=== PATIENT | male | born 1940 | race Asian ===

== ENCOUNTER → 2020-04-29 14:24 | Outpatient (REF) | payer MEDICARE, SELFPAY ==
--- NOTE | 2020-04-29 14:40 | ECG_ITS ---
Test Reason : I20.0 - Unstable angina Blood Pressure : / mmHG Vent. Rate : 072 BPM Atrial Rate : 072 BPM P-R Int : 150 ms QRS Dur : 138 ms QT Int : 422 ms P-R-T Axes : 052 050 024 degrees QTc Int : 462 ms Normal sinus rhythm Right bundle branch block Abnormal ECG When compared with ECG of 20-DEC-2010 08:27, Right bundle branch block is now Present Referred By: Antwan Fitzpatrick Electronically Signed By:CORA PHAM MD
--- NOTE | 2020-04-29 15:01 | XR_ITS ---
EXAMINATION: XR CHEST CLINICAL INFORMATION: Unstable angina. COMPARISON: 12/20/2010 chest radiographs. TECHNIQUE: 2 views of the chest were obtained. FINDINGS: A 0.5 cm nodule is again seen overlying the left upper lobe without interval change. The lungs are otherwise clear. The heart and mediastinal structures are unremarkable. IMPRESSION: Stable chest. No acute cardiopulmonary process.
== END ==
LOC: HO.CARD 14:24
PROVIDERS: PCP Internal Medicine; Visit Provider Internal Medicine
DX: R07.9 Chest pain, unspecified (principal); I20.0 Unstable angina
CPT/HCPCS: 71046; 93005

== ENCOUNTER → 2020-05-10 08:07 | Outpatient (REF) | payer MEDICARE, SELFPAY ==
--- NOTE | 2020-05-10 08:15 | CA_ITS ---
Acquisition Time: 2020-05-10 09:14:15 Total Exercise Time: 00:06:09 Test Indications: CP Medications: SEE CHART Protocol: COLBY Max HR: 146 BPM 102% of Pred: 142 BPM Max BP: 168/088 mmHG Max Work Load: 7.2 METS Exercise stress test using Colby protocol total of 6 min 9 sec. METS 7.2. Tolerated well denies any anginal sx. EKG with RBBB and multiple PVC's during exercise and in early recovery period. No ischemic changes noted. Pt had no sx with PVC's. Normotensive response to exercise. Test reviewed with Dr. Amador Referred By: Antwan Fitzpatrick Overread By: Susan Biswas
--- NOTE | 2020-05-10 08:15 | CA_ITS ---
Transthoracic Echocardiogram Patient (Last, First, Middle): Mike Ballard, Gender: Male Date of : 1940 Age: 80 Procedure Date: 05/10/2020 Procedure Type: Transthoracic Echocardiogram Location: OP Height: 172.72 cm Weight: 77.11 kg BSA: 1.91 m2 Heart Rate: bpm BP: 137 / 62 mmHg Spinner Box: KACEY Referring MD: Antwan Fitzpatrick MD Symptoms: I20.0 - Unstable angina Study Quality: Good ECG Rhythm: Sinus Conclusions: - The left ventricular systolic function is normal. The visually estimated ejection fraction is between 60-65%. - No obvious valvular pathology seen on this study. Findings Left Ventricle Normal left ventricular cavity size. The left ventricular systolic function is normal. The visually estimated ejection fraction is between 60-65%. There is no evidence of regional wall motion abnormalities. Diastolic function is normal for age. Mild basal septal hypertrophy. Right Ventricle Normal right ventricular cavity size and systolic function. Atria The left atrium is normal in size. The right atrium is normal in size. Aortic Valve There is a normal trileaflet aortic valve. There is no aortic valve stenosis. There is no aortic valve regurgitation. Mitral Valve The mitral valve appears normal. There is no mitral valve regurgitation. There is no mitral valve stenosis. Pulmonic Valve The pulmonic valve was not well visualized. Tricuspid Valve Normal tricuspid valve structure. There is trace tricuspid valve regurgitation. The pulmonary artery systolic pressure is normal. Great Vessels The aortic annulus, sinuses of valsalva, and asc aorta are normal in size. Venous The inferior vena cava is normal in size and collapses greater than 50% with inspiration. Pericardium/Pleural There is no evidence of pericardial effusion. Prior Study Comparison No prior study available for comparison. Recommendations, Care & Conclusions No obvious valvular pathology seen on this study. Measurements 2D Linear Measurements IVSd: 1.44 0.6-0.9/0.6-1.0 cm LVIDd: 4.45 3.9-5.3/4.2-5.9 cm LVIDd Index: 2.33 2.4-3.2/2.2-3.1 cm/m2 LVIDs: 1.89 2.0-3.6 cm LVPWd: 0.96 0.7-1.1 cm Ao Root: 2.70 2.1-3.5 cm LA Diam: 3.40 2.7-3.8/3.0-4.0 cm LAIDs Index: 1.78 1.5-2.3 cm/m2 LV Mass: 241.90 67-162/88-224 g LV Mass Index: 126.65 43-95/49-115 g/m2 LVOT Diam: 2.00 3.0+(-)1.3 cm 2D Systolic Function EF 4C: 68.20 >55% Mitral Valve MV Pk E: 0.84 MV PK A: 0.55 MV Decel Time: 121.00 E/A: 1.50 E'Lateral: 10.90 E'Medial: 8.90 E/E' Med: 9.50 E/E' Lat: 7.70 PHT: 36.00 MVA PHT: 6.11 Decel Carroll: 6.95 Aortic Valve AoV Pk Joey: 1.38 AoV Pk Grad: 8.00 LVOT LVOT Pk Joey: 1.48 LVOT Mn Joey: 1.14 LVOT VTI: 0.34 LVOT Pk Grad: 9.00 LVOT Mn Grad: 6.00 LVOT Diam: 2.00 LVOT Area: 3.14 Diastolic Function MV Pk E: 0.84 MV Pk A: 0.55 E/A: 1.50 E'Medial: 8.90 E/E' Med: 9.50 E' Laterial: 10.90 E/E' Lat: 7.70 Right Ventricle TAPSE (mm): 217.00 Tricuspid Valve TR Pk Joey: 2.31 TR Pk Grad: 21.00 RA Press: 3.00 RVSP: 24.00 Great Vessels Aorta Ao Root-2D: 2.70 2.0-3.7 cm Ao Asc: 3.10 2.1-3.4 cm Updated in Other Vendor System with Status of Final Florin Amador MD electronically signed on 05/10/2020 10:34:07 AM with status of Final
== END ==
LOC: HO.CARD 08:07
PROVIDERS: PCP Internal Medicine; Visit Provider Internal Medicine
DX: I20.0 Unstable angina (principal)
CPT/HCPCS: 93017; 93306

== ENCOUNTER 2020-07-07 07:31 | Outpatient (REF) | payer MEDICARE, SELFPAY ==
[2020-07-07 10:17] LABS: Basophils Percent Auto 0.5 % (0-2); Eosinophils Absolute Auto 0.3 X10*3/uL (0.0-0.4); Eosinophils Percent Auto 4.2 % (0-4); Hematocrit 44.9 % (42-52); Hemoglobin 14.7 g/dl (14.0-18.0); Imm Gran Abs Auto 0.04 X10*3/uL (0.00-0.03); Imm Gran Pct Auto 0.5 % (0.0-0.4); Lymphocytes Absolute Auto 2.2 X10*3/uL (1.2-4.9); Lymphocytes Percent Auto 28.9 % (20-40); Mean Corpuscular HGB Conc 32.7 g/dl (31.0-36.0); Mean Corpuscular Hemoglobin 28.2 pg (27.0-33.0); Mean Platelet Volume 9.9 fL (9.4-12.4); Monocytes Absolute Auto 0.7 X10*3/uL (0.1-1.2); Monocytes Percent Auto 9.2 % (2-11); Neutrophils Absolute Auto 4.3 X10*3/uL (2.0-8.3); Neutrophils Percent Auto 56.7 % (45-73); Platelet Count 270 X10*3/uL (160-400); Red Blood Count 5.22 X10*6/uL (4.60-5.80); Red Cell Distribution Width 13.1 % (11.0-16.0); White Blood Count 7.7 X10*3/uL (4.8-10.8)
[2020-07-07 10:18] LABS: MANUAL DIFF FLAG NO
[2020-07-07 10:51] LABS: Alanine Aminotransferase 28 U/L (0-40); Albumin Level 4.4 g/dL (3.5-5.0); Alkaline Phosphatase 51 U/L (39-117); Anion Gap 12 (12-20); Aspartate Amino Transferase 20 U/L (5-37); Bilirubin Total 0.6 mg/dL (0.0-1.0); Blood Urea Nitrogen 26 mg/dL (9-16); Carbon Dioxide 28 mmol/L (22-29); Chloride 102 mmol/L (96-108); Cholesterol 194 mg/dL; Estimated Glomerular Filt Rate 55; Glucose Random 101 mg/dL (60-115); HDL Cholesterol 33 mg/dL; LDL Cholesterol Calculated 123 mg/dl; Potassium 4.8 mmol/l (3.3-5.1); Sodium 137 mmol/L (135-145); Total Protein 7.3 g/dL (6.5-8.0); Triglycerides 190 mg/dL
[2020-07-07 11:13] LABS: Free T4 (Free Thyroxine) 0.99 ng/dL (0.71-1.85); Thyroid Stimulating Hormone 1.13 uIU/mL (0.32-4.0)
[2020-07-07 11:30] LABS: Folate 11.3 ng/mL (> or = 4.0); Vitamin B12 414 pg/mL (200-900)
== END 2020-07-07 07:32 | disposition home or self-care (01) ==
LOC: HO.10HDL 07:31
PROVIDERS: PCP Internal Medicine; Visit Provider Internal Medicine
DX: E78.1 Pure hyperglyceridemia (principal); E78.00 Pure hypercholesterolemia, unspecified
CPT/HCPCS: 36415; 80053; 80061; 82607; 82746; 84439; 84443; 85025

== ENCOUNTER 2020-07-25 06:42 | Outpatient (REF) | payer MEDICARE, SELFPAY | END 2020-07-25 06:43 | disposition home or self-care (01) | LOC: HO.LAB 06:42 | PROVIDERS: Visit Provider Internal Medicine | DX: Z20.822 Contact with and (suspected) exposure to COVID-19 (principal) | CPT/HCPCS: 36415; C9803; U0003 ==

== ENCOUNTER 2020-08-08 06:32 | Outpatient (REF) | payer MEDICARE, SELFPAY | END 2020-08-08 06:33 | disposition home or self-care (01) | LOC: HO.LAB 06:32 | PROVIDERS: PCP Internal Medicine; Visit Provider Internal Medicine | DX: Z20.822 Contact with and (suspected) exposure to COVID-19 (principal) | CPT/HCPCS: 36415; C9803; U0003 ==

== ENCOUNTER 2020-08-16 06:29 | Outpatient (REF) | payer MEDICARE, SELFPAY | END 2020-08-16 06:30 | disposition home or self-care (01) | LOC: HO.LAB 06:29 | PROVIDERS: Visit Provider Internal Medicine | DX: Z20.822 Contact with and (suspected) exposure to COVID-19 (principal) | CPT/HCPCS: 36415; C9803; U0003; U0005 ==

== ENCOUNTER 2021-11-07 07:18 | Outpatient (REF) | payer MEDICARE, SELFPAY ==
[2021-11-07 07:56] LABS: COVID-19 Test Negative (Negative); IDNOW Serial# 16C4AD1C
== END 2021-11-07 07:19 | disposition home or self-care (01) ==
LOC: HO.LAB 07:18
PROVIDERS: Visit Provider Internal Medicine
DX: Z20.822 Contact with and (suspected) exposure to COVID-19 (principal)
CPT/HCPCS: 87635; C9803

== ENCOUNTER 2022-01-16 07:39 | Outpatient (REF) | payer MEDICARE, SELFPAY ==
[2022-01-16 08:06] LABS: COVID-19 Test Negative (Negative)
== END 2022-01-16 07:40 | disposition home or self-care (01) ==
LOC: HO.LAB 07:39
PROVIDERS: PCP Internal Medicine; Visit Provider Internal Medicine
DX: Z20.822 Contact with and (suspected) exposure to COVID-19 (principal)
CPT/HCPCS: 87635; C9803

== ENCOUNTER 2022-02-08 07:20 | Outpatient (REF) | payer MEDICARE, SELFPAY ==
[2022-02-08 07:57] LABS: COVID-19 Test Negative (Negative)
== END 2022-02-08 07:21 | disposition home or self-care (01) ==
LOC: HO.LAB 07:20
PROVIDERS: Visit Provider Internal Medicine
DX: Z20.822 Contact with and (suspected) exposure to COVID-19 (principal)
CPT/HCPCS: 87635; C9803

== ENCOUNTER 2022-12-31 06:47 | Outpatient (REF) | payer MEDICARE, SELFPAY ==
[2022-12-31 06:55] LABS: MANUAL DIFF FLAG NO
[2022-12-31 07:27] LABS: Basophils Absolute Auto 0.1 X10*3/uL (0.0-0.2); Basophils Percent Auto 0.7 % (0-2); Eosinophils Absolute Auto 0.2 X10*3/uL (0.0-0.4); Eosinophils Percent Auto 3.2 % (0-4); Hematocrit 40.7 % (42.0-52.0); Hemoglobin 13.1 g/dl (14.0-18.0); Imm Gran Abs Auto 0.05 X10*3/uL (0.00-0.03); Imm Gran Pct Auto 0.7 % (0.0-0.4); Lymphocytes Absolute Auto 1.6 X10*3/uL (1.2-4.9); Lymphocytes Percent Auto 21.5 % (20-40); Mean Corpuscular HGB Conc 32.2 g/dl (31.0-36.0); Mean Corpuscular Hemoglobin 27.5 pg (27.0-33.0); Mean Corpuscular Volume 85.5 fL (80.0-98.0); Mean Platelet Volume 9.1 fL (9.4-12.4); Monocytes Absolute Auto 0.8 X10*3/uL (0.1-1.2); Neutrophils Absolute Auto 4.8 x10*3/uL (2.0-8.3); Neutrophils Percent Auto 63.9 % (45-73); Platelet Count 263 X10*3/uL (160-400); Red Blood Count 4.76 X10*6/uL (4.60-5.80); Red Cell Distribution Width 13.5 % (11.0-16.0); White Blood Count 7.5 X10*3/uL (4.8-10.8)
[2022-12-31 08:17] LABS: Alanine Aminotransferase 16 U/L (0-40); Albumin Level 3.9 g/dL (3.5-5.0); Alkaline Phosphatase 62 U/L (39-117); Anion Gap 12 (12-20); Aspartate Amino Transferase 14 U/L (5-37); Bilirubin Total 0.7 mg/dL (0.0-1.0); Blood Urea Nitrogen 15 mg/dL (9-16); Calcium 9.4 mg/dL (8.4-10.2); Carbon Dioxide 26 mmol/L (22-29); Chloride 104 mmol/L (96-108); Cholesterol 98 mg/dL; Estimated Glomerular Filt Rate > 60; Glucose Random 105 mg/dL (60-115); HDL Cholesterol 31 mg/dL; LDL Cholesterol Calculated 54 mg/dl; Sodium 138 mmol/L (135-145); Triglycerides 66 mg/dL
[2022-12-31 08:37] LABS: Thyroid Stimulating Hormone 1.04 uIU/mL (0.32-4.0)
[2022-12-31 08:49] LABS: Folate 9.9 ng/mL (> or = 4.0); Vitamin B12 488 pg/mL (200-900)
== END 2022-12-31 06:48 | disposition home or self-care (01) ==
LOC: HO.LAB 06:47
PROVIDERS: PCP Internal Medicine; Visit Provider Internal Medicine
DX: E78.00 Pure hypercholesterolemia, unspecified (principal)
CPT/HCPCS: 36415; 80053; 80061; 82607; 82746; 84439; 84443; 85025

== ENCOUNTER 2023-04-26 08:19 | Outpatient (AMB) | payer MEDICARE, SELFPAY ==
[2023-04-26 08:23] VITALS: BP 152/70; PULSE 80; O2SAT 98; BMI 26.5
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
== END 2023-04-26 09:02 | disposition home or self-care (01) ==
PROVIDERS: PCP Internal Medicine; Visit Provider Internal Medicine
DX: I10 Essential (primary) hypertension (principal); R73.02 Impaired glucose tolerance (oral); H34.12 Central retinal artery occlusion, left eye; E78.00 Pure hypercholesterolemia, unspecified; Z23 Encounter for immunization
CPT/HCPCS: 90471; 90714; 99214

== ENCOUNTER 2023-12-02 08:16 | Outpatient (AMB) | payer MEDICARE, SELFPAY ==
[2023-12-02 08:26] VITALS: BP 150/72; PULSE 73; O2SAT 97; BMI 27.1
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
== END 2023-12-02 09:16 | disposition home or self-care (01) ==
PROVIDERS: PCP Internal Medicine; Visit Provider Internal Medicine
DX: Z01.818 Encounter for other preprocedural examination (principal); S06.5XAA Traumatic subdural hemorrhage with loss of consciousness status unknown, initial encounter; I10 Essential (primary) hypertension; R73.02 Impaired glucose tolerance (oral); E78.00 Pure hypercholesterolemia, unspecified; D64.9 Anemia, unspecified
CPT/HCPCS: 99214

== ENCOUNTER → 2023-12-06 13:43 | Outpatient (REF) | payer MEDICARE, SELFPAY ==
--- NOTE | 2023-12-06 13:49 | ECG_ITS ---
Test Reason : PREOP Blood Pressure : / mmHG Vent. Rate : 065 BPM Atrial Rate : 065 BPM P-R Int : 154 ms QRS Dur : 142 ms QT Int : 418 ms P-R-T Axes : 057 047 031 degrees QTc Int : 434 ms Normal sinus rhythm Right bundle branch block Abnormal ECG When compared with ECG of 29-APR-2020 14:51, No significant change was found Referred By: Antwan Fitzpatrick Electronically Signed By:Geoffrey Lamb
== END ==
LOC: HO.CARD 13:43
PROVIDERS: PCP Internal Medicine; Visit Provider Internal Medicine
DX: Z01.818 Encounter for other preprocedural examination (principal)
CPT/HCPCS: 93005

== ENCOUNTER → 2023-12-06 13:49 | Outpatient (BNV) | payer MEDICARE, SELFPAY | PROVIDERS: PCP Internal Medicine; Visit Provider Internal Medicine Cardiovascular Disease | DX: R94.31 Abnormal electrocardiogram [ECG] [EKG] (principal) | CPT/HCPCS: 93010 ==

== ENCOUNTER 2023-12-07 07:30 | Outpatient (REF) | payer MEDICARE, SELFPAY ==
[2023-12-07 07:52] LABS: MANUAL DIFF FLAG NO
[2023-12-07 08:43] LABS: Basophils Absolute Auto 0.1 X10*3/uL (0.0-0.2); Basophils Percent Auto 0.9 % (0-2); Eosinophils Absolute Auto 0.2 X10*3/uL (0.0-0.4); Eosinophils Percent Auto 4.1 % (0-4); Hematocrit 38.3 % (42.0-52.0); Hemoglobin 12.4 g/dl (14.0-18.0); Imm Gran Abs Auto 0.02 X10*3/uL (0.00-0.03); Imm Gran Pct Auto 0.3 % (0.0-0.4); Immature Retic Fraction 12.4 % (2.3-13.4); Lymphocytes Absolute Auto 1.5 X10*3/uL (1.2-4.9); Lymphocytes Percent Auto 25.5 % (20-40); Mean Corpuscular HGB Conc 32.4 g/dl (31.0-36.0); Mean Corpuscular Hemoglobin 26.3 pg (27.0-33.0); Mean Corpuscular Volume 81.3 fL (80.0-98.0); Mean Platelet Volume 9.2 fL (9.4-12.4); Monocytes Absolute Auto 0.6 X10*3/uL (0.1-1.2); Monocytes Percent Auto 10.6 % (2-11); Neutrophils Absolute Auto 3.4 x10*3/uL (2.0-8.3); Neutrophils Percent Auto 58.6 % (45-73); Platelet Count 217 X10*3/uL (160-400); Red Blood Count 4.71 X10*6/uL (4.60-5.80); Red Cell Distribution Width 13.8 % (11.0-16.0); Retic HGB Equivalent 27.8 pg (30.0-35.0); Reticulocyte Percent 1.1 % (0.5-1.8); Reticulocytes Absolute 0.054 X10*6/uL (0.026-0.095); White Blood Count 5.8 X10*3/uL (4.8-10.8)
[2023-12-07 09:14] LABS: Estimated Average Glucose 126 mg/dL
[2023-12-07 09:25] LABS: Alanine Aminotransferase 23 U/L (0-40); Alkaline Phosphatase 48 U/L (39-117); Anion Gap 11 (12-20); Aspartate Amino Transferase 19 U/L (5-37); Bilirubin Total 0.7 mg/dL (0.0-1.0); Blood Urea Nitrogen 23 mg/dL (9-16); Carbon Dioxide 24 mmol/L (22-29); Chloride 107 mmol/L (96-108); Cholesterol 101 mg/dL (<200); Estimated Glomerular Filt Rate > 60; Glucose Random 123 mg/dL (60-115); HDL Cholesterol 31 mg/dL (>40); Iron 60 mcg/dL (45-160); LDL Cholesterol Calculated 50 mg/dL (<100); Percent Iron Saturation 17 % (15-50); Potassium 4.2 mmol/L (3.3-5.1); Sodium 138 mmol/L (135-145); Total Iron Binding Capacity 347 mcg/dL (228-428); Total Protein 6.7 g/dL (6.5-8.0); Triglycerides 100 mg/dL (<150); Unsaturated Iron Binding 287 ug/dL
[2023-12-07 09:42] LABS: Ferritin 11 ng/mL (20-250); Free T4 (Free Thyroxine) 0.98 ng/dL (0.71-1.85); Thyroid Stimulating Hormone 1.04 uIU/mL (0.32-4.0)
[2023-12-07 12:11] LABS: Folate 9.2 ng/mL (> or = 4.0)
[2023-12-07 13:39] LABS: Vitamin B12 391 pg/mL (200-900)
== END 2023-12-07 07:31 | disposition home or self-care (01) ==
LOC: HO.LAB 07:30
PROVIDERS: PCP Internal Medicine; Visit Provider Internal Medicine
DX: D64.9 Anemia, unspecified (principal); I10 Essential (primary) hypertension; R73.02 Impaired glucose tolerance (oral); E78.00 Pure hypercholesterolemia, unspecified
CPT/HCPCS: 36415; 80053; 80061; 82607; 82728; 82746; 83036; 83540; 84439; 84443; 85025; 85045

== ENCOUNTER 2023-12-16 06:11 | Day surgery (SDC) | payer MEDICARE, SELFPAY ==
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
[2023-12-12 14:27] VITALS: BMI 27.1
[2023-12-16 06:24] VITALS: BP 171/74; PULSE 73; RESP 18; TEMP 36.9; O2SAT 97
[2023-12-16] MEDS: Tetracaine HCl/PF 0.5% Oph Sol 4 ML DROPS 1 DROP EYE-RIGHT (06:37)
[2023-12-16] MEDS: Lactated Ringers 500 ML 50 ML IV (06:37)
[2023-12-16] MEDS: Tropicamide 1 % Ophth Sol 3 ML BTL 1 DROP EYE-RIGHT ×3 (06:38→06:41)
[2023-12-16] MEDS: Cyclopentolate 1 % Ophth Sol 2 ML DRPBTL 1 DROP EYE-RIGHT ×3 (06:38→06:41)
[2023-12-16] MEDS: Ketorolac Tromethamine 0.5% Op 10 ML DROPS 1 DROP EYE-RIGHT ×3 (06:39→06:42)
[2023-12-16] MEDS: Phenylephrine HCL 2.5% Oph SoL 2 ML BOTTLE 1 DROP EYE-RIGHT ×3 (06:39→06:42)
--- NOTE | 2023-12-16 07:51 | MHC.SHP ---
Pre-Procedural Eval Section A - 24 Hr Update-Section A only Date of Service: 12/16/23 The patient is an INPATIENT: No Changes since office visit: No Cold of Flu in the past 2 weeks, No New Medical Problems, No Changes in Medication and No Patient answered all questions The patient has been examined within 24 hours of the surgical procedure. The History & Physical has been completed within 30 days and I have reviewed it.: Yes Section B - Complete if H&P > 30 days Chief Complaint: Age-related nuclear cataract, right eye Allergies: Allergies Allergy/AdvReac Type Severity Reaction Status Date / Time No Known Allergies Allergy Verified 12/02/23 08:27 dust/ pollen Allergy Mild congestion Uncoded 12/02/23 08:27 Plan Diagnosis/Plan: Unchanged I have reviewed the history and physical and performed a pertinent physical examination on my patient. No changes have occurred unless specified. Time Spent With Patient Time: Total time managing care of this patient today ____ minutes.
--- NOTE | 2023-12-16 07:52 | P.PCNO_ITS ---
Ophthalmology Procedure Procedure Date of Service: 12/16/23 Ophthalmology Viscoelastic: Healon Duet Dual Pack Pro Ophthalmology Lenses: IOL Acrysof MP - [id number] (22.5) Procedure Notes: PREOPERATIVE DIAGNOSIS: Decreased visual acuity right eye secondary to cataract POSTOPERATIVE DIAGNOSIS: Same PROCEDURE: Right cataract extraction with intraocular lens insertion SURGEON: Sandip Gardner M.D. ANESTHESIA: Topical/MAC ESTIMATED BLOOD LOSS: None COMPLICATIONS: None After obtaining informed consent, the patient was brought to the operating room suite and placed in the supine position. After adequate sedation per anesthesia, topical drops of Tetracaine were given to the right eye. The eye was then prepped and draped in the usual sterile fashion. The operating room microscope was then positioned over the operative eye and a lid speculum placed. A paracentesis was created. Viscoelastic was then instilled into the anterior chamber. A three plane incision was then created temporally, utilizing a 2.85 mm keratome. Capsulotomy forceps were then utilized to create a circular tear capsulotomy. Hydrodissection and hydrodelineation were carried out until adequate mobilization of the nucleus occurred. Phacoemulsification was then utilized to remove the dense central nu cleus followed by removal of the cortical material utilizing the automated aspiration irrigation unit. Viscoelastic was instilled into the posterior capsular bag followed by placement of a posterior chamber intraocular lens without difficulty. The residual Viscoelastic was then removed utilizing the automated IA machine. The wound was checked and found to be watertight. The patient tolerated the procedure well and the lid speculum was removed. Intracameral injection of Vigamox 0.1 mL followed by a subtenon injection of Kenalog-40 0.2 mL were administered. The patient will be seen in the a.m.
[2023-12-16 08:48] VITALS: BP 179/87; PULSE 61; RESP 16; TEMP 36.6; O2SAT 97
--- OUTSIDE RECORDS SUMMARY | 2023-12-20 09:15 | XMS_ITS | Continuity of Care Document ---
Author Organization [facility] ter Address [address] [place] [id number] Care Team Providers Care Rigger Name Role Phone Po Antwan LYMAN Primary Care Physician [place] [facility] [place] - 12/03/[address] [id number] Discharge Disposition: A-D/C Home Attending Physician: Henna Bee MD Admitting Physician: Sammy Torres MD Referring Physician: Not on Staff, Referring MD Allergies, Adverse Reactions, Alerts No Known Medication Allergies Substance Reaction Severity Status Dust pollen,dust Active Immunizations Given and Recorded Vaccine Date Status Refusal Reason [id number] 12y+ bivalent booster vax 04/26/22 Recorded SARS-CoV-2 mRNA ([id number]) vax 11/01/21 Recorded SARS-CoV-2 (COVID-19) mRNA BNT-162b2 vac 04/07/21 Recorded SARS-CoV-2 (COVID-19) mRNA BNT-162b2 vac 09/05/20 Recorded SARS-CoV-2 (COVID-19) mRNA BNT-162b2 vac 08/15/20 Recorded Medications atorvastatin 20 mg oral tablet 1 tablet = 20 mg, By Mouth, Daily at bedtime, # 30 tablet, 0 Refills, Maintenance, 12/02/22 8:25:00EDT, Tablet, [facility], Partial fill upon patient request if the prescription is fora schedule II opioid drug., 174, cm, 12/01/22 23:35... Start Date: 12/02/22 Status: Ordered Flomax 0.4 mg oral capsule 0.4 mg, 1, capsule, By Mouth, Daily, # 30 capsule, Refills 0, Tot. Refills 0, Maintenance, :24:00 EDT, Route to Pharmacy Electronically, [facility], Partial fill upon patient request if the prescription is for a schedule II opi... Start Date: 12/02/22 Status: Ordered gabapentin 300 mg oral capsule 300 mg, 1, capsule, By Mouth, Daily at bedtime, # 30 capsule, Refills 0, Tot. Refills 0, Maintenance, 12/03/22 14:35:00 EDT, [id number] Partial fill upon patient request if the prescription is for a schedule... Start Date: 12/03/22 Status: Ordered Medrol Dosepak 4 mg oral tablet 1 pack/packet, By Mouth, Daily, for 6 days, FOR HEADACHE as directed on package labeling, # 21 tablet, 5 Refills, Acute 01/07/23 10:48:00 EDT, 12/02/22 10:48:00 EDT, Tablet, [facility],Partial fill upon patient request if the prescripti... Start Date: 12/02/22 Stop Date: 01/07/23 Status: Ordered metoprolol 25 mg oral tablet 50 mg, Tablet, By Mouth, 12/03/22 9:00:00 EDT Start Date: 12/03/22 Stop Date: 12/03/22 Status: Completed metoprolol 50 mg oral tablet, extended release 50 mg, 1, tablet, By Mouth, Daily, # 30 tablet, Refills 0, Tot. Refills 0, Maintenance, 12/02/22 8:26:00 EDT, Route to Pharmacy Electronically, [facility], Partial fill upon patient request if the prescription is for a schedule II opioid... Start Date: 12/02/22 Status: Ordered prednisolone ophthalmic acetate 1% suspension 1 drops, Eye, Left, 4 times a day, for 3 days, take for no more than 3 more days, # 5 mL, 0 Refills, Acute 12/05/22 8:24:00 EDT, 12/02/22 8:24:00 EDT, Ophth Suspension, [facility], Partial fill upon patient request if the prescription is... Start Date: 12/02/22 Stop Date: 12/05/22 Status: Ordered tranexamic acid 650 mg oral tablet 1 tablet = 650 mg, By Mouth, Daily, # 14 tablet, 0 Refills, Maintenance, 12/02/22 8:24:00 EDT, Tablet, [facility], Partial fill upon patient request if the prescription is for a schedule II opioid drug., 174, cm, 12/01/22 23:35:00 EDT, H... Start Date: 12/02/22 Stop Date: 12/16/22 Status: Ordered Tylenol 325 mg oral tablet 975 mg, 3, tablet, By Mouth, Every 6 hours, PRN, for 14 days, # 30 tablet, Refills 0, Tot. Refills 0, Acute 12/16/22 8:25:00 EDT, Pain , Mild, 12/02/22 8:25:00 EDT, Route to Pharmacy Electronically, [facility], Partial fill upon patient... Start Date: 12/02/22 Stop Date: 12/16/22 Status: Ordered Problem List Condition Confirmation Course Effective Dates Status [facility] Informant Hernia, inguinal, right Confirmed Active Results Radiology Reports * Exam Date Time Procedure Performing Provider Status 12/02/22 1:[address] Head/Brain W/O Contrast Rhonda Fuentes; Jhonatan (Verified) Notes: (CT Head/Brain W/O Contrast) Reason For Exam: Headache(s) RESULT: CT Head/Brain W/O Contrast CT Head/Brain W/O Contrast INDICATION: Reason: Headache(s); Clinical Question(s): Hematoma. TECHNIQUE: Noncontrast head CT using axial technique and reconstructed in axial and coronal planes.Iterative reconstruction techniques are used to optimize dose and image quality. CTDIvol Head: 45.50 mGy, DLP Head: 772 mGy*cm. COMPARISON: Head CT dated 11/29/2022. FINDINGS: Firearms Inspector view findings, lines and tubes: None. BRAIN AND EXTRA-AXIAL SPACES: Bilateral mixed density subdural collections are again seen. These are not significantly changed measuring up to 1.4 cm on the right and 1.6 cm on the left associated mass effect on the adjacent frontal and parietal lobes and right lateral ventricle. No evidence of midline shift. No parenchymal hemorrhage, Petersen-white matter differentiation is well preserved. No acute infarct. Basilar cisterns are patent. No white matter lesions. No subarachnoid hemorrhage. No epidural collection. CALVARIUM, SKULL BASE, AND SOFT TISSUES: No fractures or suspicious bony lesions. The paranasal sinuses and mastoid air cells are clear. Visualized orbits and globes are intact. The extracranial soft tissues are unremarkable. IMPRESSION: No interval change in mixed density bilateral subdural collections. WSN: [id number] Ordering Physician: Bisi Porter Dictated By: Brittaney Calderon MD Dictated Date/Time: 12/02/22 1:47 pm Reviewed By: Brittaney Calderon MD Signed By: Brittaney Calderon MD Signed Date/Time: 12/02/22 1:47 pm Transcribed By: GIOVANNA Transcribed Date/Time: 12/02/22 1:38 pm * Exam Date Time Procedure Performing Provider Status 11/29/22 4:[address] Head/Brain W/O Contrast Fortunato Carballo era; Auth (Verified) Notes: (CT Head/Brain W/O Contrast) Reason For Exam: Worsening neuro exam, size of SDH;Other: RESULT: CT Head/Brain W/O Contrast CT Head/Brain W/O Contrast INDICATION: Reason: Worsening neuro exam, size of SDH TECHNIQUE: Noncontrast head CT using axial technique and reconstructed in axial and coronal planes.Iterative reconstruction techniques are used to optimize dose and image quality. CTDIvol Head: 48.20 mGy, DLP Head: 773 mGy*cm. COMPARISON: 11/28/2022, interventional radiology images 11/28/2022, and multiple priors. FINDINGS: Firearms Inspector view findings, lines and tubes: None. BRAIN AND EXTRA-AXIAL SPACES: Redemonstrated bilateral frontoparietal subdural hemorrhages, unchanged bilaterally measuring 2.0 cm in maximum thickness (series 204:28, 30). Decreased hyperdense components as compared to the immediate prior dated 11/28/2022, which could represent reabsorption/redistribution of IV contrast administered during an angiography or decreasing acute hemorrhagic components. Mass effect in the form of effacement of the sulci and the lateral ventricles is unchanged. No midline shift. No herniation. No new hemorrhage. No loss of petersen-white matter differentiation. Negative insular ribbon sign. Atherosclerotic vascular calcification of the carotid arteries but negative hyperdense vessel sign. Ventricles, sulci, and basilar cisterns are normal. No white matter lesions. Bilateral middle meningeal artery embolization. CALVARIUM, SKULL BASE, AND SOFT TISSUES: No fractures or suspicious bony lesions. Mild anterior ethmoid air cell mucosal thickening, unchanged. The remaining paranasal sinuses and mastoid air cells are clear. Visualized orbits and globes are intact. The extracranial soft tissues are unremarkable. IMPRESSION: Decrease in hyperdense components of bilateral frontoparietal subdural hemorrhages. These are unchanged in thickness measuring 2.0 cm bilaterally, with unchanged mass effect. No herniation or midlineshift. I have personally reviewed the images and I agree with this report. WSN: [id number] Ordering Physician: Scottie Murillo Dictated By: Edel Jimenez MD Dictated Date/Time: 11/29/22 4:55 pm Reviewed By: Quoc Nicholas MD Signed By: Quoc Nicholas MD Signed Date/Time: 11/29/22 5:00 pm Transcribed By: GIOVANNA Transcribed Date/Time: 11/29/22 4:53 pm * Exam Date Time Procedure Performing Provider Status 11/28/22 3:[address] Head/Brain W/O Contrast Sonam Jenkins; Auth (Verified) Notes: (CT Head/Brain W/O Contrast) Reason For Exam: L occular headache s/p MMA embolization;Headache(s) RESULT: CT Head/Brain W/O Contrast CT Head/Brain W/O Contrast INDICATION: Reason: Headache(s); L occular headache s p MMA embolization; Clinical Question(s): Hematoma; Order Comment: TECHNIQUE: Noncontrast head CT using axial technique and reconstructed in axial and coronal planes.Iterative reconstruction techniques are used to optimize dose and image quality. CTDIvol Head: 46.10 mGy, DLP Head: 773 mGy*cm. COMPARISON: Cranial angiography 11/28/2022. CT 11/24/2022. FINDINGS: BRAIN AND EXTRA-AXIAL SPACES: Interval bilateral middle meningeal artery embolization. Redemonstrated bilateral acute on chronic frontoparietal subdural hematomas, with increasing hyperdense components, but unchanged in size/thickness, measuring a maximum of 2.0 cm on the right (:31), and 2.0 cm on the left (series 204:33). Bilateral mass effect in the form of the effacement of the sulci and minimal effacement of the lateral ventricles bilaterally. No midline shift or herniation. Petersen-white matter differentiation is well preserved. No acute infarct. Negative insular ribbon sign. Atherosclerotic vascular calcification of the carotid arteries but negative hyperdense vessel sign. No white matter lesions. CALVARIUM, SKULL BASE, AND SOFT TISSUES: No fractures or suspicious bony lesions. Mild anterior ethmoid air cell mucosal thickening. The remaining paranasal sinuses and mastoid air cells are clear. Visualized orbits and globes are intact. The extracranial soft tissues are unremarkable. 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 Mild mass effect in form of effacement of the sulci. No herniation. I have personally reviewed the images and I agree with this report. WSN: [id number] Ordering Physician: Mark Hughes Dictated By: Edel Jimenez MD Dictated Date/Time: 11/28/22 3:55 pm Reviewed By: Cindi Ojeda MD Signed By: Cindi Ojeda MD Signed Date/Time: 11/28/22 4:00 pm Transcribed By: GIOVANNA Transcribed Date/Time: 11/28/22 3:46 pm Vital Signs Most recent to oldest [Reference Range]: 1 2 3 Height 174 cm (12/03/22 4:03 AM) 174 cm (12/02/22 11:36 PM) 174 cm (12/02/22 8:38 PM) Weight 75.1 kg (11/28/22 12:30 PM) 76.2 kg (11/28/22 4:24 AM) 76.8 kg (11/24/22 9:11 PM) Oxygen Saturation [94-100 %] 100 % (12/03/22 11:00 AM) 100 % (12/03/22 8:00 AM) 100 % (12/03/22 4:03 AM) Pulse Rate [55-90 bpm] 60 bpm (12/03/22 11:00 AM) 68 bpm (12/03/22 8:18 AM) 59 bpm (12/03/22 4:03 AM) Body Mass Index [18.5-24.99 kg/m2] 25.37 kg/m2 *H* (11/24/22 9:11 PM) Blood Pressure [90-138/55-84 mm Hg] 146/62mm Hg *H* (12/03/22 11:00 AM) 150/59mm Hg *H* (12/03/22 8:18 AM) 144/66mm Hg *H* (12/03/22 4:03 AM) Respiratory Rate [16-30 br/min] 16 br/min (12/03/22 11:00 AM) 17 br/min (12/03/22 8:00 AM) 16 br/min (12/03/22 4:03 AM) Temperature [96.8-100.4 DegF] 98.2 DegF (12/03/22 11:00 AM) 97.9 DegF (12/03/22 8:00 AM) 98.3 DegF (12/03/22 4:03 AM) Mode of Delivery (Oxygen) Room air (12/03/22 11:00 AM) Room air (12/03/22 8:00 AM) Room air (12/03/22 4:03 AM) Blood pressure sites Arm, right (12/03/22 11:00 AM) Arm, left (12/03/22 8:00 AM) Arm, left (12/03/22 4:03 AM) Temperature Route Temporal (12/03/22 11:00 AM) Temporal (12/03/22 8:00 AM) Temporal (12/03/22 4:03 AM) Dry Weight 76.8 kg (11/24/22 9:11 PM) Weight Obtained Via Bed scale (11/28/22 4:24 AM) Social History Social History Type Response Smoking Status Never smoker entered on: 02/05/17 Sex Note * Poonam Nielsen RN: PERFORM Event Display: Discharge/Transfer Note Hospital Authored Date: [id number] Nursing Discharge Note Entered On: 12/03/2022 13:57 EDT Performed On: 12/03/2022 13:56 EDT by Poonam Nielsen RN Nursing Discharge Note 2 Discharge Time : 12/03/2022 13:56 EDT Discharge Level of Care at Discharge : Homehealth/VNA Discharge VNA/Hospice/Home Care(v001) : [facility] [phone] Patient Left Unit Via : Wheelchair Patient Accompanied Off Unit with : Significant other, Responsible adult DC Instructions Provided & Signed by Pt : Yes Patient Understands D/C Instructions : Yes Verbalized Understanding of D/C Plan By : Patient, Significant other Patient Instructions Discharge Signed : Yes Discharge Comments : IV removed, cannula tip intact. Pt able to state when to take next doses of all meds and when to make and attend all follow up appointments Did Pt have Specialty Bed or Wound Vac : No Morales ALVES, Poonam - 12/03/2022 13:56 EDT * Florence Roca DO: MODIFY, PERFORM, MODIFY, MODIFY Event Display: Discharge/Transfer Note Hospital Authored Date: [id number] Patient: ??MIKE BALLARD ? Age:??82 Years?Sex:??Male?:??1940?? Patient Information Discharge Location: A Primary Care Physician: Antwan Fitzpatrick MD Admit Date/Time: 11/24/22 20:01 Discharge Disposition Discharge Disposition: Home with Home Health Discharge Diagnosis SDH (subdural hematoma)?? MMA embolization Central Retinal Artery Occlusion Left sided vision loss _ Discharge Medications Acetaminophen (Tylenol 325 mg oral tablet)?975?Milligram?3?tablet?By Mouth?Every 6 hours?as needed?for 14?Days?Pain , Mild Atorvastatin (atorvastatin 20 mg oral tablet)?1?tab(s)?20?Milligram?By Mouth?Daily at bedtime Gabapentin (gabapentin 300 mg oral capsule)?300?Milligram?1?capsule?By Mouth?Daily at bedtime MethylPREDNISolone (Medrol Dosepak 4 mg oral tablet)?1?pack/packet?By Mouth?Daily?for 6?Days?FOR HEADACHE as directed on package labeling Metoprolol (metoprolol 50 mg oral tablet, extended release)?50?Milligram?1?tablet?ByMouth?Daily PrednisoLONE Ophthalmic (prednisolone ophthalmic acetate 1% suspension)?1?Drops?Eye, Left?4 times a day?for 3?Days?take for no more than 3 more days Tamsulosin (Flomax 0.4 mg oral capsule)?0.4?Milligram?1?capsule?By Mouth?Daily Tranexamic Acid (tranexamic acid 650 mg oral tablet)?1?tab(s)?650?Milligram?By Mouth?Daily?for 14?Days ?? Medications Started Acetaminophen (Tylenol 325 mg oral tablet)?975?Milligram?3?tablet?By Mouth?Every 6 hours?as needed?for 14?Days?Pain , Mild Atorvastatin (atorvastatin 20 mg oral tablet)?1?tab(s)?20?Milligram?By Mouth?Daily at bedtime Gabapentin (gabapentin 300 mg oral capsule)?300?Milligram?1?capsule?By Mouth?Daily at bedtime MethylPREDNISolone (Medrol Dosepak 4 mg oral tablet)?1?pack/packet?By Mouth?Daily?for 6?Days?FOR HEADACHE as directed on package labeling Metoprolol (metoprolol 50 mg oral tablet, extended release)?50?Milligram?1?tablet?ByMouth?Daily PrednisoLONE Ophthalmic (prednisolone ophthalmic acetate 1% suspension)?1?Drops?Eye, Left?4 times a day?for 3?Days?take for no more than 3 more days Tamsulosin (Flomax 0.4 mg oral capsule)?0.4?Milligram?1?capsule?By Mouth?Daily Tranexamic Acid (tranexamic acid 650 mg oral tablet)?1?tab(s)?650?Milligram?By Mouth?Daily?for 14?Days Medications Discontinued None Doses Changed Metoprolol (metoprolol 50 mg oral tablet, extended release)?50?Milligram?1?tablet?ByMouth?Daily ?? Allergies Allergies ?(Active and Proposed Allergies Only) No Known Medication Allergies? (Severity: Unknown severity, Onset: Unknown) Dust? (Severity: Unknown severity, Onset: Unknown) ?Reactions: pollen,dust ?? PCP Follow-Up/Heads-Up 1. Given bradycardia while admitted dose of Metoprolol lowered to 50XL from 100XL, please follow upand titrate medication??as needed 2. Had some urinary retention while admitted, passed voiding trial, d/c with Flomax, please follow up for ongoing need 3. Pt should complete a total 21 days TXA, has had??10 days while admitted and discharged with 11 more days 4. Pt instructed to continue Prednisone drops PRN 4 x a day for no more than about 3 more days for eye pain 5. 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 past medical history of hypertension who presented to [facility] on November 24, 2022 with generalized weakness and acute on chronic neck pain with a reported history of fall 2 months ago who was found to have chronic subdural hematoma status post MMAembolization complicated by left-sided visual loss and pupillary defect which was thought to be from 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 ?? Objective Assessment and Plan Acute on chronic subdural hematoma??status post MMA embolization complicated by left-sided visual loss Bilateral Subdural Hematoma Patient suffered a fall 2 months ago after falling in the bathroom. He developed symptoms of generalized fatigue, acute on chronic neck pain, and weight loss which prompted him to be seen in the emergency department on November 24. He was found to have an acute on chronic subdural hematoma status post??MMA embolization complicated by left-sided visual loss. 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 Recommendations: - Appreciate Ophthalmology consult - recommend using Pred Forte 1% 4 times a day for approximately 1 week to decrease the pain in the left eye due to the probable ocular ischemia as the patient is complaining of soreness in the left eye. - Plans for f/u outpatient - Continue atorvastatin and TXA p.o. for 21 days per neurosurgery recommendation??reported benefit in combination (started 11/25) - Tylenol??as needed for??headache - Outpatient follow up and obtain f/u imaging in 4 weeks and [address] Espinosa ?? New vision loss CRAO, Left side Headache Recommendations - headache he notes feels unchanged from prior, no neuro deficits - will be discharged on PO steroid taper, consider shorter taper if headache is completely resolved - PCP f/u for ongoing medication can consider Nortryptiline for migraine ppx if ongoing ?? Hypertension Bradycardia- resolved Takes metoprolol 100 daily at home Pt with significant bradycardia at time of presentation Recommendations - Continue??metoprolol at 50 XL, PCP f/u ?? Urinary retention passed voiding trial - continue Tamsulosin at home ?? . Physical Exam General: Patient in no acute distress?? HEENT: normocephalic, atraumatic,??L sided ptosis Respiratory: respiratory rate and effort on room air.?? CVS: regular rate and rhythm, S1 and S2 present, no murmurs, rubs or gallops. No JVD.?? Abdomen: soft, non tender, non distended, bowel sounds present, no organomegaly.?? Extremities: No edema noted b/l.?? Neuro: alert and oriented x3. Cranial nerves II-XII grossly intact. Moving all extremities spontaneously. Normal tones, following simple commands.?? Derm: No signs of infection, surrounding skin is intact with no evidence of erythema, no purulent discharge, no tenderness?? Psych: Normal mood and affect?? Consultants Neruoendovascular: Dr Espinosa Ophthalmology: Dr Wilde Pending Results None Patient Education Titles Tranexamic Acid Oral Tablet?? Atorvastatin Oral Tablet?? Follow-Up Appointments Added Follow Up ?Time Frame ?Comments Po Antwan LYMAN?Within two weeks Patient Instructions Admitted to [facility] on 11/24 after you are having falls, and you were found to have??bleeding in the brain??(subdural hematoma).?? While you are admitted, you were evaluated by 's office, with neuro endovascular surgery,??who ultimately took you for??embolization on 11/28. ??After e mbolization you were followed in the ICU. 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 Wilde from ophthalmology for this reason. It is important that you follow-up with 's office for neuroendovascular:??He will arrange to seeyou in 4 weeks in 12 weeks, his office will call you. Please also follow-up with ophthalmology. The following medications have been started: Atorvastatin 20 mg Tranexamic acid??daily, this is a medication to stop bleeding which she can take for another 14 days for a total of 21 days??as instructed by Dr. Pickett. Prednisolone??eyedrops:??Please take these for no longer than another 3 to 4 days??in the left eye 4 times a day and maximum for eye pain. ?? Due to having??lower heart rate and blood pressure while you are first admitted,??your metoprolol dose has been??decreased to 50??mg from 100 mg. ??Please follow-up with your primary care doctor for ongoing blood pressure titration. Post Discharge Care Diet: Regular Diet Activity: OOB as tolerated Wound Care: none Code Status: ?? Full Resuscitation Condition: good Prognosis: Fair Home Health Face to Face *Denotes mandatory perkins ?? *I certify that this patient is under my care and that I or an allowed non- physician working with me had a face to face encounter with the patient on this date:??12/03/2022 10:59 ?? *The encounter with the patient was in whole, or in part, for the following medical condition, which is the primary diagnosis(es) for home health care:??SDH (subdural hematoma) (S06.5XAA) ? *Select the indications for the discipline/s that are being arranged for this patient. Nursing (select all that apply): [_] None [x] Medication management (reconciliation, teaching)?? [x] Chronic disease management?? [_] Wound care and treatment?? [x] Home safety evaluation [_] Administer SQ/IM/IV medications?? [_] Cath care?? [_] Drain care?? [_] Trach or GT care?? Other _ Occupation Therapy (select all that apply): [_] None [x] ADL Management [x] Fall prevention training [_] Energy conservation [_] Cognitive training Other _ Physical Therapy (select all that apply): [_] None [x] Functional mobility training [_] Home exercise program to strengthen [x] Increase ROM?? [x] Falls prevention training [_] Home maintenance program for chronic disease Other _ Speech Therapy (select all that apply): [_] None [_] Swallow evaluation and training [_] Speech and language training [_] Cognitive training to process, organize, and/or recall information Other _ ? *Homebound due to (select all that apply): [x] Inability to leave home without assistance/supervision [_] Inability to ambulate without assistance [x] Pain [_] Decreased strength and endurance [_] Unsteady gait [_] Severe SOB and fatigue [_] Impaired transfers [_] Inability to negotiate stairs [_] Limited weight bearing [_] Mental status change? *Physician Signature:??Florence Roca,??DO ?? *By signing this, I certify that I have personally evaluated the patient and agree with the findings and recommendations as documented above. ? Results Discharge Labs BLOOD COUNT & DIFF WBC 12.2 k/mm3 (High)?? 12/01/2022 01:30 RBC 4.66 m/mm3 (Low)?? 12/01/2022 01:30 Hgb 12.9 Gm/dL (Low)?? 12/01/2022 01:30 Hct 39.7 % (Low)?? 12/01/2022 01:30 MCV 85.2 femtoliters ()?? 12/01/2022 01:30 MCH 27.7 pg ()?? 12/01/2022 01:30 MCHC 32.5 g/dL (Low)?? 12/01/2022 01:30 Platelet Count 247 k/mm3 ()?? 12/01/2022 01:30 RDW-SD 43.0 femtoliters ()?? 12/01/2022 01:30 MPV 9.4 femtoliters ()?? 12/01/2022 01:30 Nucleated RBC (Automated) 0.0 #/100 WBC'S ()?? 12/01/2022 01:30 Abs. NRBC 0.0 k/mm3 ()?? 12/01/2022 01:30 Abs. Neut 9.1 k/mm3 (High)?? 12/01/2022 01:30 Abs. Lymph 1.6 k/mm3 ()?? 12/01/2022 01:30 Abs. [place] 1.2 k/mm3 ()?? 12/01/2022 01:30 Abs. Eo 0.2 k/mm3 ()?? 12/01/2022 01:30 Abs. Baso 0.0 k/mm3 ()??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 at increased risk for osteoporosis (weakening of the bones), your doctor may recommend foods with calcium and vitamin D. Keep all appointments for medical exams and tests while on this medicine. ?? Cautions Tell your doctor and pharmacist if you ever had an allergic reaction to a medicine. Do not use the medication any more than instructed. Please check with your doctor before drinking alcohol while on this medicine. This medicine may reduce your body's ability to fight infections. Avoid contact with people with colds, flu or other infections. Contact your doctor if you develop fever, cough, sore throat, or chills. Speak with your health care provider before receiving any vaccinations. This medicine passes into breast milk. Ask your doctor before . During , this medicine should be used only when clearly needed. Talk to your doctor about the risks and benefits. Do not share this medicine with anyone who has not been prescribed this medicine. ?? Side Effects The following is a list of some common side effects from this medicine. Please speak with your doctor about what you should do if you experience these or other side effects. ??? acne ??? agitated feeling or trouble sleeping ??? increased appetite ??? dizziness ??? headaches ??? high blood sugar ??? high blood pressure ??? nausea and vomiting ??? stomach upset or abdominal pain ??? sweating Call your doctor or get medical help right away if you notice any of these more serious side effects: ??? bleeding or bruising ??? severe or persistent bone, joint or jaw pain ??? coughing up blood or vomit that looks like coffee grounds ??? depression or feeling sad ??? swelling of the legs, feet, and hands ??? fever or chills ??? hair growth ??? fast or irregular heart beats ??? signs of liver damage (such as yellowing of eye or skin, dark urine, or unusual tiredness) ??? menstruation changes (missed or fewer periods) ??? mood changes ??? muscle weakness ??? seizures ??? thinning of the skin ??? dark, tarry stool ??? excessive thirst ??? yeast infection of mouth ??? increased urinary frequency ??? vaginal itching or yeast infection ??? blurring or changes of vision ??? sudden or unexplained weight gain ??? slow wound healing A few people may have an allergic reaction to this medicine. Symptoms can include difficulty breathing, skin rash, itching, swelling, or severe dizziness. If you notice any of these symptoms, seek medical help quickly. ?? Extra Please speak with your doctor, nurse, or pharmacist if you have any questions about this medicine. ?? [email or web address] IMPORTANT NOTE: This document tells you briefly how to take your medicine, but it does not tell youall there is to know about it. Your doctor or pharmacist may give you other documents about your medicine. Please talk to them if you have any questions. Always follow their advice. There is a more complete description of this medicine available in Persian. Scan this code on your smartphone or tablet or use the web address below. You can also ask your pharmacist for a printout. If you have any questions, please ask your pharmacist. The display and use of this drug information is subject to Terms of Use. Copyright(c) 2022 [employer] ([place] ?? [employer]. All rights reserved. This information is not intended as a substitute for professional medical care. Always follow your healthcare professional's instructions. ?? * Poonam Nielsen RN: PERFORM Event Display: Patient Education Leaflets Authored Date: [id number] Catheter Embolization ?? 56451 Catheter Embolization Embolization is a procedure to block a blood vessel. It is done to stop severe bleeding or to stop blood flow to a part of the body. To do this, a thin, flexible tube called a catheter is put into the specific blood vessel that needs to be blocked. Initially, this would be done after going into a peripheral artery or vein in your arm or groin. It is often done by a healthcare provider called an interventional radiologist. This procedure may be done alone, or before or after surgery or other treatment. Why is catheter embolization done? The procedure may be done to: ??? Control bleeding in an emergency ??? Block blood flow to a cancerous tumor ??? Block blood flow to a uterine fibroid ??? Treat arteriovenous malformations in the brain and body ?? Possible risks and complications Risks and complications depend on the part of the body being treated. Talk to your radiologist. Risks can include: ??? Blood clots, damage to an artery ??? Stroke ? Infection or bruising around the catheter insertion site ??? Pain ??? Problems due to contrast medium, including allergic reaction or kidney damage ??? The chance that the embolic agent could lodge in the wrong place and deprive normal tissue of its oxygen supply For uterine fibroid embolization, risks include: ??? Cramping ??? Fever ??? Cessation of menstrual cycles (rare) ??? Problems with future fertility ?? How do I get ready for the procedure? You will be told how to prepare for your procedure. Follow these instructions carefully. Also do the following: ??? Do not eat or drink before the procedure,??as directed by your healthcare provider.??? Tell the healthcare provider: o What medicines you take. This includes herbs and supplements. oIf you are or may be . o If you are allergic to contrast medium (X-ray dye) or other medicines. ?? What happens during the procedure? Before the procedure starts, you may be given a sedative through an IV (intravenous) line in your hand or arm. This medicine will make you relaxed and sleepy. Or you will be given general anesthesia to put you in a deep sleep through the procedure. Local anesthetic is also used. This blocks pain atthe site where the catheter is inserted. The procedure is then started. ??? A small incision is made over the insertion site.?? A catheter is put into the blood vessel. It is then moved to the area to be treated. ??? Contrast medium is injected through the catheter. This makes the artery and catheter stand out on X-ray pictures. The movement of the catheter is viewed on a video screen. ??? A material or medicine is sent through the catheter to the vessel that needs to be blocked. ??? The procedure is repeated in each blood vessel that needs to be blocked. ??? The catheter is then taken out. Firm pressure is put on the insertion site for about 15 minutes to stop bleeding. ?? What happens after the procedure? Directions will vary depending on why you had the procedure. If the catheter was inserted in your groin, you will need to lie flat with your leg straight for several hours. You may go home the same day. Or you may stay in the hospital or surgery center 1 or more nights. Follow any directions you have been given about recovering at home. ?? Last Reviewed Date: 2022 ?? 9670-6270 [employer]. All rights reserved. This information is not intended as a substitute for professional medical care. Always follow your healthcare professional's instructions. ?? * Poonam Nielsen RN: PERFORM Event Display: Patient Education Leaflets Authored Date: [id number] Central Retinal Artery Occlusion ?? 152 Central Retinal Artery Occlusion What is central retinal artery occlusion? When 1 of the vessels that carry blood to your eye???s retina gets blocked, you can lose your eyesight. This problem often happens suddenly and without any pain. This is called a central retinal artery occlusion (CRAO). Your retina is the layer of nerve tissue at the back of??your inner eye that senses light. The retina turns images into electrical signals. Your??optic nerve carries these signals to??your brain. If a blockage of a blood vessel happens in??your retina, it can be very serious. The blockage often comes from a blood clot or cholesterol deposit in??your blood vessel. This is a serious condition. You should get medical care right away. If a blood clot breaks free and moves to the brain, it could cause a stroke. The symptoms of CRAO can come quickly and be very serious. Most often you will have some loss of eyesight. Even after treatment, your eyesight likely won't get better. A disease that is like CRAO is branch retinal artery occlusion. This is a blockage in 1 branch of the central retinal artery. With this kind of retinal artery occlusion, you are more likely to keep fair to good eyesight. ?? What causes central retinal artery occlusion? Central retinal artery occlusion is a blockage of the central retinal artery. The blockage often comes from a blood clot or cholesterol in??your blood vessel. ? Who is at risk for central retinal artery occlusion? High blood pressure and aging are the main risks for CRAO. Diabetes can also raise your risk. So can problems in which your blood is thicker than normal. In women, the problem has been linked to using control pills. ?? What are the symptoms of central retinal artery occlusion? The symptoms of CRAO are: ??? Sudden blindness in 1 of your eyes ??? Sudden, complete blurring of eyesight in 1 eye The symptoms are almost always lifelong (permanent). If you??have only partial blurring or loss of eyesight, you may have a branch retinal artery occlusion. The symptoms of CRAO may seem like other health problems. Always talk with your healthcare providerfor a diagnosis. ?? How is central retinal artery occlusion diagnosed? If your healthcare provider thinks that you have CRAO, they will do a physical exam of the eye. Your eye will be dilated first. Your healthcare provider may also do other eye tests. These are done tofind out the type of blockage and how much damage you have. One eye test that can make a clear diagnosis is called a fundoscopy. This test is often done with a slit lamp biomicroscope. You will be tested for high blood pressure, diabetes, and possibly other diseases that can affect your blood vessels. If you are young, your healthcare provider may check if your blood is thicker than normal. This can be done with a blood test called a complete blood count, as well as other tests. Your healthcare provider may make other checks of your heart and blood vessel health to see if you have problems in other areas. These health problems may be related. ?? How is central retinal artery occlusion treated? Treatment will depend on your symptoms, age, and general health. It will also depend on how severe the condition is. Experts say that if you arrive at the hospital with at least 20/40 vision, you may have fairly goodeyesight later on. If your vision in the eye is 20/200 or worse, the outlook for recovery may not be optimistic. Some people have been treated with high pressure (hyperbaric) oxygen. The retina takes in more oxygen than any other organ in the body. This makes the retina more likely to be harmed if a blockage keeps oxygen-rich blood from reaching it. Hyperbaric oxygen therapy can give enough extra oxygen to keep the retina healthy until normal blood flow returns. You will breathe pure oxygen in a special room. The extra oxygen in the blood can sometimes cause the arteries in your retina to get wider. This can help your eyesight get better. This treatment has not been proven to be reliably effective. How well this works depends on the type of blockage. It also depends on how quickly therapy begins after the blockage forms. This therapy may work best if started within 8 hours after the blockage begins. In other cases, your healthcare provider might try to relieve the blockage. They will do this by massaging the eye. They may use a clot-busting medicine, such as a t-PA (tissue-plasminogen activator). Your provider may remove a small amount of fluid from the front of the eye. This is to try to restore the blood flow. As with hyperbaric oxygen therapy, none of these treatments have been proven to be reliably effective in all cases. Unfortunately, the vision almost never improves, no matter whichtreatment is used. ?? What are possible complications of central retinal artery occlusion? Central retinal artery occlusion can lead to permanent loss of eyesight in the affected eye. ?? Can central retinal artery occlusion be prevented? Central retinal artery occlusion is often linked to diabetes or heart problems. But these health problems don???t directly cause it. A good preventive step is to keep your heart healthy. You can do this by: ??? Staying at a healthy weight ??? Eating a healthy diet ??? Exercising regularly ??? Not smoking Also, if you have diabetes, work to keep your blood sugar at a healthy level.? Fisher points about central retinal artery occlusion ??? Central retinal artery occlusion is the blockage of blood to the retina of 1 eye. ??? It often causes sudden loss of eyesight in 1 eye. ??? You are at higher risk if you are older or have high blood pressure or diabetes. ??? You are also at higher risk if your blood is thicker than normal. ??? This condition needs medical care right away. ??? Treatment choices include fluid release, hyperbaric oxygen therapy, and clot-busting medicines. Noneof these treatments is proven to be helpful. ?? Next steps Tips to help you get the most from a visit to your healthcare provider: ??? Know the reason for your visit and what you want to happen. ??? Before your visit, write down questions you want answered. ??? Bring someone with you to help you ask questions and remember what your provider tells you. ??? At the visit, write down the name of a new diagnosis, and any new medicines, treatments, or tests. Also write down any new instructions your provider gives you. ??? Know why a new medicine or treatment is prescribed, and how it will help you. Also know what the side effects are. ??? Ask if your condition can be treated in other ways. ??? Know why a test or procedure is recommended and what the results could mean. ??? Know what to expect if you do not take the medicine or have the test or procedure. ??? If you have a follow-up appointment, write down the date, time, and purpose for that visit. ??? Know how you can contact your provider if you have questions. ?? Last Reviewed Date: 2020 ?? 5550-8507 [employer]. All rights reserved. This information is not intended as a substitute for professional medical care. Always follow your healthcare professional's instructions. ?? * Event Display: Hemodynamic Procedure Report Authored Date: Consult note * Fernando Espinosa MD: PERFORM, SIGN, VERIFY Event Display: Consult Authored Date: [id number] Patient: MIKE BALLARD [facility]: [id number] Age: 82 years Sex: Male : 1940 Associated Diagnoses: None Author: Fernando Espinosa MD Visit Information I evaluated Dr. Ballard at the request of primary team and nsg. I reviewed all pertinent imaging. 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 He fell face first after tripping back in September. MMA embolization was requested and I discussed this option with him. We discussed risks including but not limited to stroke, vascular injury, cranial nerve injury and . He understands the risks and wishes to proceed. We will arrange this as soon as can be scheduled. Admission evaluation note * Amrita LYMAN, Ann: PERFORM Event Display: Admission Note Authored Date: [id number] Patient: ??MIKE BALLARD ? Age:??82 Years?Sex:??Male?:??1940?? 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 ?? Patient reports that he had a fall 2 months ago while he was in the bathroom and tripped on a dirtyclot on the floor. ??At the time, he denied any focal neurological deficits. 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 ??He presented to the emergency department on November 24 with generalized weakness, poor appetite, and acute on chronic neck pain. ??CT head revealed moderate acute on chronic subdural hematoma causing a mass effect. ??He was seen by neurosurgery and underwent MMA embolization on 11/28/2022 which was complicated by loss of vision on the left with left-sided minimally reactive pupils. 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 ??He is being transferred to the medicine service for further evaluation and management. ?? Patient underwent an EEG which was abnormal due to the presence of focal intermittent slowing seen over the left temporal region suggesting the presence of a focal lesion or disturbance of cerebral function involving this region with no epileptiform activity. ?? Review of Systems Constitutional, Eye, Skin, Head/Neck, ENMT, Respiratory, Cardiovascular, Gastrointestinal, Endocrine, Musculoskeletal, Neurologic, Psych reviewed and negative except as noted in HPI. Objective Vital Signs?? Temperature: 98.2 DegF (11/30/22 16:19:00) Temperature Route: Oral (11/30/22 16:19:00) Pulse Rate: 60 bpm (11/30/22 16:19:00) Heart Rate Monitored: 59 bpm (11/30/22 16:19:00) Respiratory Rate:??12 br/min??Low (11/30/22 16:19:00) Systolic Blood Pressure: 137 mm Hg (11/30/22 16:19:00) Diastolic Blood Pressure: 67 mm Hg (11/30/22 16:19:00) Blood pressure sites: Arm, right (11/30/22::00) Mean Arterial Pressure: 56 mm Hg (11/29/22 22:00:00) Pulse Pressure: 70 mm Hg (11/30/22::00) Oxygen Saturation: 96 % (11/30/22 16:19:00) Mode of Delivery (Oxygen): Room air (11/30/22::00) Early Warning Score: 0 (11/30/22 16:20:38) ? Physical Exam General:??No apparent distress. Well nourished, appears stated age. Able to participate in a conversation. HEENT:??NCAT, EOMI, Sclera are anicteric. Moist oral mucosa. Neck:??Supple, No lymphadenopathy. No JVD. Cardiac:??Regular rate and rhythm, + S1, S2. No appreciable murmurs. PMI ND. Respiratory:??Clear to auscultation bilaterally without wheezes, rales or rhonchi. Abdomen:??Soft, nontender, non-distended, no abnormal BS, no HSM. Rectal exam deferred. Extremities:??No lower extremity edema noted.?? Neurology:??No focal neurological deficits.??Loss of vision in left eye. Psych:??Appropriate affect. 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 ?? Acute on chronic subdural hematoma??status post MMA embolization complicated by left-sided visual loss Bilateral Subdural Hematoma Patient suffered a fall 2 months ago after falling in the bathroom. He developed symptoms of generalized fatigue, acute on chronic neck pain, and weight loss which prompted him to be seen in the emergency department on November 24. He was found to have an acute on chronic subdural hematoma status post??MMA embolization complicated by left-sided visual loss. 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 - (11/29) Discussed with neurosurgery, okay to discontinue??systemic steroids ?? Plan: - Appreciate Ophthalmology consult - recommend using Pred Forte 1% 4 times a day for approximately 1 week to decrease the pain in the left eye due to the probable ocular ischemia as the patient is complaining of soreness in the left eye. - Continue atorvastatin and TXA p.o. for 21 days per neurosurgery recommendation??reported benefit in combination - Neuro-checks every 4 hours - Tylenol??as needed for??headache - Outpatient follow up and obtain f/u imaging in 4 weeks and 12 weeks - CT head for change in neurological status - Delirium precautions ?? Hypertension Takes metoprolol 100 daily at home Started on lisinopril 11/29 for hypertension which was discontinued overnight for softer BP lowest 80's ?? Plan: - Continue??metoprolol ?? Urinary retention BUN/Cre 26/1.1 (25/1.0); UOP 425cc overnight, 1.8L 24/hr ?? Plan - Galo catheter - Trial voiding prior to discharge - Tamsulosin 0.4 mg daily ?? Quality measures DVT prophylaxis: Heparin subcutaneous Diet:??Cardiac CODE STATUS: Full resuscitation ?? Patient discussed with Dr. Carter. Histories Allergies No Known Medication Allergies? (Severity: Unknown severity, Onset: Unknown) Dust? (Severity: Unknown severity, Onset: Unknown) ?Reactions: pollen,dust ?? Past Medical History/Problem List Active Problems??(1) Hernia, inguinal, right ?? Past Surgical History Esophagogastroduodenoscopy and biopsy: 01/20/21 Repair right inguinal hernia with mesh: 01/11/16 Excision vocal cord mucosal cyst: 1996 ?? Social History Alcohol Details:??Use: Never. Substance Abuse Details:??Use: Never. Tobacco Details:??Never smoker Details:??Never smoker ?? Family History No family history recorded. Medications Home Medications Metoprolol (metoprolol succinate 100 mg oral capsule, extended release)?1?capsule?100?Milligram?By Mouth?Daily ?? Inpatient Medications Medications (17) Active SCHEDULED: (7) Atorvastatin 20 mg Tablet (atorvastatin 20 mg oral tablet) ??20 mg, By Mouth, Daily at bedtime Heparin 5000 units/mL Inj (1 mL) (Heparin Inj) ??5,000 units 1 mL, Subcutaneous Injection, 3 times a day Metoprolol 50 mg Tablet (metoprolol 25 mg oral tablet) ??50 mg, By Mouth, 2 times a day NaCl 0.9% Flush 3ml (NaCL 0.9% Flush) ??3 mL, IV Push, Every 8 hours PrednisoLONE Acetate 1% Ophthalmic Suspension (Pred Forte 1% Ophth (Pred Acetate)) ??1 drops, Eye, Left, 4 times a day Tamsulosin 0.4 mg Capsule (Flomax 0.4 mg oral capsule) ??0.4 mg, By Mouth, Daily Tranexamic Acid 650 mg Tablet (Tranexamic Acid Tablet) ??650 mg, By Mouth, Daily CONTINUOUS: (0) PRN: (10) Acetaminophen 325 mg Tablet (Tylenol 325 mg oral tablet) ??975 mg, By Mouth, Every 6 hours Dextromethorphan-Guaifenesin 20 mg-200 mg/10 mL Liqu UD (Robitussin DM Liquid) ??10 mL, By Mouth, Every 4 hours hydrALAZINE 20 mg/mL Inj (hydrALAZINE Inj) ??10 mg 0.5 mL, IV Push Slowly, 4 times a day Melatonin 3 mg Tablet (Melatonin Tablet) ??3 mg, By Mouth, Daily at bedtime NaCl 0.9% Flush 3ml (NaCL 0.9% Flush) ??3 mL, IV Push, Every 8 hours Ondansetron 2mg/mL Inj (2mL Vial) (Zofran Inj) ??4 mg, IV Push Slowly, Every 6 hours Polyethylene Glycol 17 Gm Powder (MiraLax Powder) ??17 Gm 1 pack/packet, By Mouth, Daily PROCHLORperazine 5mg/ml Inj (PROCHLORperazine Inj) ??10 mg 2 mL, IV Push Slowly, Every 6 hours Senna 8.6 mg / Docusate 50 mg tablet (Docusate/Senna Tablet) ??1 tablet, By Mouth, 2 times a day Simethicone 80 mg Chewable Tablet (Simethicone Tablet) ??80 mg, Chew, 3 times a day Results Recent Labs BLOOD COUNT & DIFF WBC 12.0 k/mm3 (High)?? 11/30/2022 02:47 RBC 4.38 m/mm3 (Low)?? 11/30/2022 02:47 Hgb 12.1 Gm/dL (Low)?? 11/30/2022 02:47 Hct 38.0 % (Low)?? 11/30/2022 02:47 MCV 86.8 femtoliters ()?? 11/30/2022 02:47 MCH 27.6 pg ()?? 11/30/2022 02:47 MCHC 31.8 g/dL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 Location, Adult Eye, left Eye Symptoms, Adult Ptosis Eyelid, Left Partially open . Integumentary Data. : Integumentary Data. 12/02/2022 10:51 EDT Sensory Perception No impairment Moisture Rarely moist Activity Walks occasionally Mobility Slightly limited Nutrition Adequate Friction and Shear No apparent problem Darron Score 20 Nursing Care Plan initiated/updated Not applicable 12/02/2022 9:00 EDT Skin Integrity Intact Sensory Perception No impairment Integumentary WNL except . Musculoskeletal Data. : Musculoskeletal Data. 12/02/2022 9:00 EDT Musculoskeletal Symptoms None Musculoskeletal WNL except . Neurological Data. : Neurological Data. 12/02/2022 9:00 EDT Tongue Disposition Midline Neurological Symptoms Headache: persistent, changing or sudden Level of Consciousness Full Consciousness Orientated to person, place, time Person, Place, Time, Event Facial Symmetry Intact Characteristics of Speech Clear and normal Pupil description, left Irregular Pupil description, right Regular Pupil reaction, right Brisk Strength LUE 5-Active movement against gravity & full resistance Strength RUE 5-Active movement against gravity & full resistance Strength LLE 5-Active movement against gravity & full resistance Strength RLE 5-Active movement against gravity & full resistance Tone LUE Normal Tone RUE Normal Tone LLE Normal Tone RLE Normal Sensation LUE Intact Sensation RUE Intact Sensation LLE Intact Sensation RLE Intact Movement LUE Spontaneous Movement RUE Spontaneous Movement LLE Spontaneous Movement RLE Spontaneous Neurological Comments vision loss L eye Pain Intensity 5 1 - 10 Pain Scale Score 6 Neuro WNL except Memory Intact Swallow - Neuro Normal . Narrative/Incidental Patient remains in acute care, no tele, plan per MD poss discharge but holding off for time being. patient AOX4, pleasant and cooperative. JAMIL. L eye ptosis w vision loss. Severe headache this AM, MDaware, fiorcet order and admin, had nausea and had some spit up, zofran order and admin, cool clothapplied, pt reports some relief currently. Normal tone and sensation throughout. speech clear and normal. tolerating room air, denies dyspnea, breathing unlabored and symmetric. some nausea now improved, skipped breakfast. continent of both bowel and bladder. Steady gait. safety measures are in place, pls see CIS for more details. 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 INDEP without AD at baseline and lives with in 1L home. Pt CGA without AD on eval. See for strength, balance, endurance, safety, mobility. Home with assist and home PT. Distance pt will ambulate 200ft or greater Full chart review completed Yes Plan of care PT Gait training, Transfer training, Therapeutic exercise, Functional Activities, Balance training 12/01/2022 8:06 EDT Comments on treatment indicated ADL's, funct mob, visual scanning strategies, safety, pt edu Full chart review completed Yes Hospital course vision loss in the left eye post-middle meningeal embolization on 11/28/2022. * Yessy Clark: PERFORM Event Display: Progress Note Hospital Authored Date: due to pain from L eye, headache and intermittent nausea discharge discontinued. CTH ordered and completed. steriods restarted. MD aware pt has new rash on back, raided, warm to touch, not itchy CT Head WO contrast * [facility] , CIS S: TRANSCRIBE Yumiko LYMAN, Brittaney Rico: VERIFY Event Display: Result: Authored Date: [id number] CT Head/Brain W/O Contrast INDICATION: Reason: Headache(s); Clinical Question(s): Hematoma. TECHNIQUE: Noncontrast head CT using axial technique and reconstructed in axial and coronal planes.Iterative reconstruction techniques are used to optimize dose and image quality. CTDIvol Head: 45.50 mGy, DLP Head: 772 mGy*cm. COMPARISON: Head CT dated 11/29/2022. FINDINGS: Firearms Inspector view findings, lines and tubes: None. BRAIN AND EXTRA-AXIAL SPACES: Bilateral mixed density subdural collections are again seen. These are not significantly changed measuring up to 1.4 cm on the right and 1.6 cm on the left associated mass effect on the adjacent frontal and parietal lobes and right lateral ventricle. No evidence of midline shift. No parenchymal hemorrhage, Petersen-white matter differentiation is well preserved. No acute infarct. Basilar cisterns are patent. No white matter lesions. No subarachnoid hemorrhage. No epidural collection. CALVARIUM, SKULL BASE, AND SOFT TISSUES: No fractures or suspicious bony lesions. The paranasal sinuses and mastoid air cells are clear. Visualized orbits and globes are intact. The extracranial soft tissues are unremarkable. IMPRESSION: No interval change in mixed density bilateral subdural collections. WSN: [id number] Ordering Physician: Bisi Porter Dictated By: Brittaney Calderon MD Dictated Date/Time: 12/02/22 1:47 pm Reviewed By: Brittaney Calderon MD Signed By: Brittaney Calderon MD Signed Date/Time: 12/02/22 1:47 pm Transcribed By: CSB Transcribed Date/Time: 12/02/22 1:38 pm * [facility] , CIS S: TRANSCRIBE Quoc Nicholas MD S: VERIFY Barbara LYMAN, Ahmed: SIGN Event Display: Result: Authored Date: [id number] CT Head/Brain W/O Contrast INDICATION: Reason: Worsening neuro exam, size of SDH TECHNIQUE: Noncontrast head CT using axial technique and reconstructed in axial and coronal planes.Iterative reconstruction techniques are used to optimize dose and image quality. CTDIvol Head: 48.20 mGy, DLP Head: 773 mGy*cm. COMPARISON: 11/28/2022, interventional radiology images 11/28/2022, and multiple priors. FINDINGS: Firearms Inspector view findings, lines and tubes: None. BRAIN AND EXTRA-AXIAL SPACES: Redemonstrated bilateral frontoparietal subdural hemorrhages, unchanged bilaterally measuring 2.0 cm in maximum thickness (series 204:28, 30). Decreased hyperdense components as compared to the immediate prior dated 11/28/2022, which could represent reabsorption/redistribution of IV contrast administered during an angiography or decreasing acute hemorrhagic components. Mass effect in the form of effacement of the sulci and the lateral ventricles is unchanged. No midline shift. No herniation. No new hemorrhage. No loss of petersen-white matter differentiation. Negative insular ribbon sign. Atherosclerotic vascular calcification of the carotid arteries but negative hyperdense vessel sign. Ventricles, sulci, and basilar cisterns are normal. No white matter lesions. Bilateral middle meningeal artery embolization. CALVARIUM, SKULL BASE, AND SOFT TISSUES: No fractures or suspicious bony lesions. Mild anterior ethmoid air cell mucosal thickening, unchanged. The remaining paranasal sinuses and mastoid air cells are clear. Visualized orbits and globes are intact. The extracranial soft tissues are unremarkable. IMPRESSION: Decrease in hyperdense components of bilateral frontoparietal subdural hemorrhages. These are unchanged in thickness measuring 2.0 cm bilaterally, with unchanged mass effect. No herniation or midlineshift. I have personally reviewed the images and I agree with this report. WSN: [id number] Ordering Physician: Scottie Murillo Dictated By: Edel Jimenez MD Dictated Date/Time: 11/29/22 4:55 pm Reviewed By: Quoc Nicholas MD Signed By: Quoc Nicholas MD Signed Date/Time: 11/29/22 5:00 pm Transcribed By: GIOVANNA Transcribed Date/Time: 11/29/22 4:53 pm * [facility] , CIS S: TRANSCRIBE Cindi Ojeda MD M: VERIFY Edel Jimenez MD: SIGN Event Display: Result: Authored Date: [id number] CT Head/Brain W/O Contrast INDICATION: Reason: Headache(s); L occular headache s p MMA embolization; Clinical Question(s): Hematoma; Order Comment: TECHNIQUE: Noncontrast head CT using axial technique and reconstructed in axial and coronal planes.Iterative reconstruction techniques are used to optimize dose and image quality. CTDIvol Head: 46.10 mGy, DLP Head: 773 mGy*cm. COMPARISON: Cranial angiography 11/28/2022. CT 11/24/2022. FINDINGS: BRAIN AND EXTRA-AXIAL SPACES: Interval bilateral middle meningeal artery embolization. 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 Bilateral mass effect in the form of the effacement of the sulci and minimal effacement of the lateral ventricles bilaterally. No midline shift or herniation. Petersen-white matter differentiation is well preserved. No acute infarct. Negative insular ribbon sign. Atherosclerotic vascular calcification of the carotid arteries but negative hyperdense vessel sign. No white matter lesions. CALVARIUM, SKULL BASE, AND SOFT TISSUES: No fractures or suspicious bony lesions. Mild anterior ethmoid air cell mucosal thickening. The remaining paranasal sinuses and mastoid air cells are clear. Visualized orbits and globes are intact. The extracranial soft tissues are unremarkable. 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 Mild mass effect in form of effacement of the sulci. No herniation. I have personally reviewed the images and I agree with this report. WSN: [id number] Ordering Physician: Mark Hughes Dictated By: Edel Jimenez MD Dictated Date/Time: 11/28/22 3:55 pm Reviewed By: Cindi Ojeda MD Signed By: Cindi Ojeda MD Signed Date/Time: 11/28/22 4:00 pm Transcribed By: GIOVANNA Transcribed Date/Time: 11/28/22 3:46 pm Patient Care team information Care Team Personnel Name: Esha Joyce RN Position: [facility] RN Member Role: Primary Care Nurse Name: Barbara Carreno RN Position: [facility] RN Member Role: Primary Care Nurse Name: Yessy Clark Position: [facility] RN Member Role: Primary Care Nurse Name: Princess Gomez RN Position: [facility] RN Member Role: Primary Care Nurse Name: Clau Brown RN Position: [facility] RN Member Role: Primary Care Nurse Name: Antwan Fitzpatrick MD Position: Reference Physician Member Role: PCP Address: Address: [address] [place] [address] - Name: Yann Meade RN Position: [facility] RN Member Role: Primary Care Nurse Name: Taryn Trujillo RN Position: [facility] RN Member Role: Primary Care Nurse Name: Sharon Du RN Position: [facility] Gas Engine Performance Engineer Member Role: Primary Care Nurse Care Team Related Persons Name: RENE MULLEN Address: home [place], [place] Name: AURELIA ROPER Address: home [address] [place] [address] Name: COCO ZAVALA Address: home [address] [place] [address]
--- OUTSIDE RECORDS SUMMARY | 2023-12-20 09:15 | XMS_ITS | Continuity of Care Document ---
Author Organization [facility] ter Address [address] [place] [id number]- Care Team Providers Care Lease Administration Supervisor Name Role Phone Po Antwan LYMAN Primary Care Physician Encounter [facility] Date(s): 12/02/22 - 01/01/[address] [address]- Attending Physician: Not on Staff, Attending MD Admitting Physician: Not on Staff, Admitting MD Referring Physician: Not on Staff, Referring MD Allergies, Adverse Reactions, Alerts No Known Medication Allergies Substance Reaction Severity Status Dust pollen,dust Active Immunizations Given and Recorded Vaccine Date Status Refusal Reason [id number] 12y+ bivalent booster vax 04/26/22 Recorded SARS-CoV-2 mRNA ([id number]) vax 11/01/21 Recorded SARS-CoV-2 (COVID-19) mRNA BNT-162b2 vac 04/07/21 Recorded SARS-CoV-2 (COVID-19) mRNA BNT-162b2 vac 09/05/20 Recorded SARS-CoV-2 (COVID-19) mRNA BNT-162b2 vac 08/15/20 Recorded Medications atorvastatin 20 mg oral tablet 1 tablet = 20 mg, By Mouth, Daily at bedtime, # 30 tablet, 0 Refills, Maintenance, 12/02/22 8:25:00EDT, Tablet, [facility], Partial fill upon patient request if the prescription is fora schedule II opioid drug., 174, cm, 12/01/22 23:35... Start Date: 12/02/22 Status: Ordered Flomax 0.4 mg oral capsule 0.4 mg, 1, capsule, By Mouth, Daily, # 30 capsule, Refills 0, Tot. Refills 0, Maintenance, :24:00 EDT, Route to Pharmacy Electronically, [facility], Partial fill upon patient request if the prescription is for a schedule II opi... Start Date: 12/02/22 Status: Ordered gabapentin 300 mg oral capsule 300 mg, 1, capsule, By Mouth, Daily at bedtime, # 30 capsule, Refills 0, Tot. Refills 0, Maintenance, 12/03/22 14:35:00 EDT, [id number] upon patient request if the prescription is for a schedule... Start Date: 12/03/22 Status: Ordered Medrol Dosepak 4 mg oral tablet 1 pack/packet, By Mouth, Daily, for 6 days, FOR HEADACHE as directed on package labeling, # 21 tablet, 5 Refills, Acute 01/07/23 10:48:00 EDT, 12/02/22 10:48:00 EDT, Tablet, [facility],Partial fill upon patient request if the prescripti... Start Date: 12/02/22 Stop Date: 01/07/23 Status: Ordered metoprolol 50 mg oral tablet, extended release 50 mg, 1, tablet, By Mouth, Daily, # 30 tablet, Refills 0, Tot. Refills 0, Maintenance, 12/02/22 8:26:00 EDT, Route to Pharmacy Electronically, [facility], Partial fill upon patient request if the prescription is for a schedule II opioid... Start Date: 12/02/22 Status: Ordered tranexamic acid 650 mg oral tablet 1 tablet = 650 mg, By Mouth, Daily, # 14 tablet, 0 Refills, Maintenance, 12/02/22 8:24:00 EDT, Tablet, [facility], Partial fill upon patient request if the prescription is for a schedule II opioid drug., 174, cm, 12/01/22 23:35:00 EDT, H... Start Date: 12/02/22 Stop Date: 12/16/22 Status: Ordered Problem List Condition Confirmation Course Effective Dates Status Health St [facility] Informant Hernia, inguinal, right Confirmed Active Social History Social History Type Response Smoking Status Never smoker entered on: 02/05/17 Sex Patient Care team information Care Team Personnel Name: Esha Joyce RN Position: [facility] RN Member Role: Primary Care Nurse Name: Barbara Carreno RN Position: [facility] RN Member Role: Primary Care Nurse Name: Yessy Clark Position: [facility] RN Member Role: Primary Care Nurse Name: Princess Gomez RN Position: [facility] RN Member Role: Primary Care Nurse Name: Clau Brown RN Position: [facility] RN Member Role: Primary Care Nurse Name: Antwan Fitzpatrick MD Position: Reference Physician Member Role: PCP Address: Address: [address] [place] [id number] Name: Yann Meade RN Position: [facility] RN Member Role: Primary Care Nurse Name: Taryn Trujillo RN Position: [facility] RN Member Role: Primary Care Nurse Name: Sharon Du RN Position: [facility] On Site Services Specialist Member Role: Primary Care Nurse Care Team Related Persons Name: RENE MULLEN Address: [place] [address] Name: FANY ROPER Address: home [address] [place] [address] Name: COCO ZAVALA Address: home [address] [place] [address]
--- OUTSIDE RECORDS SUMMARY | 2023-12-20 09:15 | XMS_ITS | Continuity of Care Document ---
Author Organization [facility] Address [address] [place] [id number]- Care Team Providers Care Ore Tester Name Role Phone Po Antwan LYMAN Primary Care Physician Encounter [facility] Date(s): 11/15/21 - 12/15/21 [facility] [address] [place] [address]- [place] Allergies, Adverse Reactions, Alerts No Known Medication Allergies Substance Reaction Severity Status Dust pollen,dust Active Medications Carafate 1 gm/10 ml oral suspension 10 mL = 1 Gm, By Mouth, 3 times a day before meals and bedtime, # 600 mL, 0 Refills, Maintenance, 02/13/19 8:41:03 EDT Start Date: 02/13/19 Status: Ordered Colace sodium 100 mg oral capsule 100 mg, 1, capsule, By Mouth, 2 times a day, # 60 capsule, Refills 0, Tot. Refills 0, Maintenance, 02/04/17 10:37:21, Print Requisition Start Date: 02/04/17 Status: Ordered docusate sodium 100 mg oral capsule 100 mg, 1, capsule, By Mouth, 2 times a day, Take for constipation. Take with plenty of water., # 60 capsule, Refills 0, Tot. Refills 0, Maintenance, 01/11/16 9:44:58, Print Requisition Start Date: 01/11/16 Status: Ordered Flomax 0.4 mg oral capsule 0.4 mg, 1, capsule, By Mouth, Daily, # 7 capsule, Refills 0, Tot. Refills 0, Maintenance, 01/11/16 18:27:35, Print Requisition Start Date: 01/11/16 Stop Date: 01/18/16 Status: Ordered gabapentin 100 mg oral capsule 100 mg, By Mouth, 3 times a day, # 21 tablet, Refills 0, Tot. Refills 0, Maintenance, 02/04/17 10:37:19, Print Requisition Start Date: 02/04/17 Stop Date: 02/11/17 Status: Ordered omeprazole 40 mg oral enteric coated capsule 1 capsule = 40 mg, By Mouth, Daily, # 30 capsule, 3 Refills, Maintenance, 02/13/19 8:42:02 EDT, EC Capsule Start Date: 02/13/19 Status: Ordered Problem List Condition Effective Dates Status Health Status Inform ant Hernia, inguinal, right(Confirmed) Active Social History Social History Type Response Smoking Status Never smoker entered on: 02/05/17 Sex
== END 2023-12-16 08:51 | disposition home or self-care (01) ==
PROVIDERS: PCP Internal Medicine; Visit Provider Ophthalmology
PROC: (CPT 66985; principal; 2023-12-16 08:30)
DX: H25.11 Age-related nuclear cataract, right eye (principal); I10 Essential (primary) hypertension; Z79.899 Other long term (current) drug therapy
CPT/HCPCS: 66984; J3010; J3301; V2630

== ENCOUNTER 2024-02-07 08:13 | Outpatient (AMB) | payer MEDICARE, SELFPAY ==
[2024-02-07 08:29] VITALS: BP 152/70; PULSE 68; O2SAT 97; BMI 26.6
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
== END 2024-02-07 09:07 | disposition home or self-care (01) ==
PROVIDERS: PCP Internal Medicine; Visit Provider Internal Medicine
DX: D64.9 Anemia, unspecified (principal); E78.00 Pure hypercholesterolemia, unspecified; R73.02 Impaired glucose tolerance (oral); I10 Essential (primary) hypertension; K40.90 Unilateral inguinal hernia, without obstruction or gangrene, not specified as recurrent; K42.9 Umbilical hernia without obstruction or gangrene
CPT/HCPCS: 99214

== ENCOUNTER 2024-05-29 06:48 | Outpatient (REF) | payer MEDICARE, SELFPAY ==
[2024-05-29 07:12] LABS: MANUAL DIFF FLAG NO
[2024-05-29 07:26] LABS: Basophils Absolute Auto 0.1 X10*3/uL (0.0-0.2); Basophils Percent Auto 0.8 % (0-2); Eosinophils Absolute Auto 0.4 X10*3/uL (0.0-0.4); Hematocrit 42.2 % (42.0-52.0); Imm Gran Abs Auto 0.08 X10*3/uL (0.00-0.03); Imm Gran Pct Auto 1.1 % (0.0-0.4); Immature Retic Fraction 11.2 % (2.3-13.4); Lymphocytes Absolute Auto 1.8 X10*3/uL (1.2-4.9); Lymphocytes Percent Auto 24.7 % (20-40); Mean Corpuscular HGB Conc 33.2 g/dl (31.0-36.0); Mean Corpuscular Hemoglobin 28.7 pg (27.0-33.0); Mean Corpuscular Volume 86.5 fL (80.0-98.0); Mean Platelet Volume 8.9 fL (9.4-12.4); Monocytes Absolute Auto 0.6 X10*3/uL (0.1-1.2); Monocytes Percent Auto 7.8 % (2-11); Neutrophils Absolute Auto 4.5 x10*3/uL (2.0-8.3); Neutrophils Percent Auto 60.6 % (45-73); Platelet Count 214 X10*3/uL (160-400); Red Blood Count 4.88 X10*6/uL (4.60-5.80); Red Cell Distribution Width 14.1 % (11.0-16.0); Retic HGB Equivalent 34.4 pg (30.0-35.0); Reticulocyte Percent 1.6 % (0.5-1.8); Reticulocytes Absolute 0.076 X10*6/uL (0.026-0.095); White Blood Count 7.4 X10*3/uL (4.8-10.8)
[2024-05-29 07:34] LABS: Estimated Average Glucose 123 mg/dL; Hemoglobin A1C 139.2769 umol/L; Hemoglobin A1c % 5.9 % (<6.0); Total Hemoglobin (HGBA1C) 3412.6799 umol/L
[2024-05-29 08:05] LABS: Alanine Aminotransferase 34 U/L (0-40); Albumin Level 4.2 g/dL (3.5-5.0); Alkaline Phosphatase 48 U/L (39-117); Anion Gap 9 (12-20); Aspartate Amino Transferase 25 U/L (5-37); Bilirubin Total 0.9 mg/dL (0.0-1.0); Blood Urea Nitrogen 20 mg/dL (9-16); Calcium 8.7 mg/dL (8.4-10.2); Carbon Dioxide 27 mmol/L (22-29); Chloride 103 mmol/L (96-108); Estimated Glomerular Filt Rate > 60; Glucose Random 132 mg/dL (60-115); Iron 99 mcg/dL (45-160); Percent Iron Saturation 34 % (15-50); Potassium 4.3 mmol/L (3.3-5.1); Sodium 135 mmol/L (135-145); Total Iron Binding Capacity 294 mcg/dL (228-428); Total Protein 6.8 g/dL (6.5-8.0); Unsaturated Iron Binding 195 ug/dL
[2024-05-29 08:29] LABS: Folate 8.9 ng/mL (> or = 4.0); Vitamin B12 490 pg/mL (200-900)
[2024-05-29 08:33] LABS: Ferritin 42 ng/mL (20-250)
== END 2024-05-29 06:49 | disposition home or self-care (01) ==
LOC: HO.LAB 06:48
PROVIDERS: PCP Internal Medicine; Visit Provider Internal Medicine
DX: D64.9 Anemia, unspecified (principal); R73.02 Impaired glucose tolerance (oral)
CPT/HCPCS: 36415; 80053; 82607; 82728; 82746; 83036; 83540; 85025; 85045

== ENCOUNTER 2024-06-26 08:16 | Outpatient (AMB) | payer MEDICARE, SELFPAY ==
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
--- OUTSIDE RECORDS SUMMARY | 2024-06-26 08:23 | XMS_ITS | Continuity of Care Document ---
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 Name Role Phone Po Antwan LYMAN Primary Care Physician [id number] Date(s): 05/26/24 - 06/25/24 [facility] [address] [place] [address]- Encounter Type: Triage Allergies, Adverse Reactions, Alerts No Known Medication Allergies Substance Criticality Severity Reaction Reaction Severity Status Dust pollen,dust Active Immunizations Given and Recorded Vaccine Date Status Refusal Reason [id number] 12y+ bivalent booster vax 04/26/22 Recorded SARS-CoV-2 mRNA ([id number]) vax 11/01/21 Recorded SARS-CoV-2 (COVID-19) mRNA BNT-162b2 vac 04/07/21 Recorded SARS-CoV-2 (COVID-19) mRNA BNT-162b2 vac 09/05/20 Recorded SARS-CoV-2 (COVID-19) mRNA BNT-162b2 vac 08/15/20 Recorded Medications atorvastatin 20 mg oral tablet 1 tablet = 20 mg, By Mouth, Daily at bedtime, # 30 tablet, 0 Refills, Maintenance, 12/02/22 8:25:00 AM EDT, Tablet, [facility], Partial fill upon patient request if the prescription is for a schedule II opioid drug., 174, cm, 12/01/22 23:35:00 EDT, Height, 76.8, kg, 11/24/22 21:11:00 EDT, Dry Weight Start Date: 12/02/22 Status: Ordered Quantity: 30.0 Unit: tablet Repeat number: 1 Flomax 0.4 mg oral capsule 0.4 mg, 1, capsule, By Mouth, Daily, # 30 capsule, Refills 0, Tot. Refills 0, Maintenance, 12/02/22 8:24:00 AM EDT, Route to Pharmacy Electronically, [facility], Partial fill upon patient request if the prescription is for a schedule II opioid drug., 174, cm, 12/01/22 23:35:00 EDT, Height, 76.8, kg, 11/24/22 21:11:00 EDT, Dry Weight Start Date: 12/02/22 Status: Ordered Quantity: 30.0 Unit: capsule Repeat number: 1 gabapentin 300 mg oral capsule 300 mg, 1, capsule, By Mouth, Daily at bedtime, # 30 capsule, Refills 0, Tot. Refills 0, Maintenance, 12/03/22 2:35:00 PM EDT, Route to Pharmacy Electronically, [facility] #[id number], Partial fill upon patient request if the prescription is for a schedule II opioid drug., 174, cm, 12/03/22 4:03:00 EDT, Height, 76.8, kg, 11/24/22 21:11:00 EDT, Dry Weight Start Date: 12/03/22 Status: Ordered Quantity: 30.0 Unit: capsule Repeat number: 1 metoprolol 50 mg oral tablet, extended release 50 mg, 1, tablet, By Mouth, Daily, # 30 tablet, Refills 0, Tot. Refills 0, Maintenance, 12/02/22 8:26:00 AM EDT, Route to Pharmacy Electronically, [facility], Partial fill upon patient request if the prescription is for a schedule II opioid drug., 174, cm, 12/01/22 23:35:00 EDT, Height, 76.8, kg, 11/24/22 21:11:00 EDT, Dry Weight Start Date: 12/02/22 Status: Ordered Quantity: 30.0 Unit: tablet Repeat number: 1 omeprazole 20 mg oral enteric coated capsule 1 capsule = 20 mg, By Mouth, Daily, # 90 capsule, 1 Refills, Maintenance, 05/15/24 12:39:00 PM EDT, [facility]/pharmacy #[id number], Partial fill upon patient request if the prescription is for a schedule II opioid drug., 173, cm, 05/15/24 11:21:00 EDT, Height, 77.5, kg, 05/15/24 11:21:00 EDT, Dry Weight Start Date: 05/15/24 Stop Date: 11/11/24 Status: Ordered Quantity: 90.0 Unit: capsule Repeat number: 2 tranexamic acid 650 mg oral tablet 1 tablet = 650 mg, By Mouth, Daily, # 14 tablet, 0 Refills, Maintenance, 12/02/22 8:24:00 AM EDT, Tablet, [facility], Partial fill upon patient request if the prescription is for a schedule II opioid drug., 174, cm, 12/01/22 23:35:00 EDT, Height, 76.8, kg, 11/24/22 21:11:00 EDT, Dry Weight Start Date: 12/02/22 Stop Date: 12/16/22 Status: Ordered Quantity: 14.0 Unit: tablet Repeat number: 1 Problem List Condition Confirmation Course Effective Dates Status Health St atus Informant Hernia, inguinal, right Confirmed Active Social History Social History Type Response Smoking Status Never smoker entered on: 02/05/17 Sex Sex Representation Male (finding) Patient Care team information Care Team Personnel Name: Barbara Carreno RN Position: [facility] RN Member Role: Primary Care Nurse Name: Yessy Clark RN Position: [facility] RN Member Role: Primary Care Nurse Name: Princess Gomez RN Position: [facility] RN Member Role: Primary Care Nurse Name: Clau Brown RN Position: [facility] RN Member Role: Primary Care Nurse Name: Antwan Fitzpatrick MD Position: Reference Physician Member Role: PCP Address: [address] [place] [id number] Telecom: Name: Yann Meade RN Position: [facility] RN Member Role: Primary Care Nurse Name: Taryn Trujillo RN Position: [facility] RN Member Role: Primary Care Nurse Name: Sharon Du RN Position: [facility] Hospital Financial Counselor Member Role: Primary Care Nurse Care Team Related Persons Name: RENE MULLEN Name: FANY ROPER Name: COCO ZAVALA Insurance Providers Guarantor name: [facility] Health Plan Information #: 1 Payer: MEDICARE PART B OUTPT Member Number: NA Policy Number: NA Group Number: NA Health Plan Information #: 2 Payer: [employer]EX Member Number: NA Policy Number: NA Group Number: NA
[2024-06-26 08:24] VITALS: BP 160/80; BMI 26.6
== END 2024-06-26 08:57 | disposition home or self-care (01) ==
PROVIDERS: PCP Internal Medicine
DX: D64.9 Anemia, unspecified (principal); E78.00 Pure hypercholesterolemia, unspecified; I10 Essential (primary) hypertension; R73.02 Impaired glucose tolerance (oral)

== ENCOUNTER → 2024-06-26 08:16 | Outpatient (BNVA) | payer MEDICARE, SELFPAY | PROVIDERS: PCP Internal Medicine | DX: D64.9 Anemia, unspecified (principal); I10 Essential (primary) hypertension; R73.02 Impaired glucose tolerance (oral); E78.00 Pure hypercholesterolemia, unspecified | CPT/HCPCS: 99212 ==

== ENCOUNTER → 2024-08-07 07:50 | Outpatient (BNVA) | payer MEDICARE, SELFPAY | PROVIDERS: PCP Internal Medicine | DX: I10 Essential (primary) hypertension (principal); E78.00 Pure hypercholesterolemia, unspecified; R73.02 Impaired glucose tolerance (oral) | CPT/HCPCS: 99212 ==

== ENCOUNTER 2024-10-30 08:16 | Outpatient (AMB) | payer MEDICARE, SELFPAY ==
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
[2024-10-30 08:30] VITALS: BP 120/70; PULSE 63; TEMP 36.5; O2SAT 98; BMI 26.6
== END 2024-10-30 09:42 | disposition home or self-care (01) ==
LOC: HO.HMCH 08:16
PROVIDERS: PCP Internal Medicine; Visit Provider Internal Medicine
DX: I10 Essential (primary) hypertension (principal); E78.1 Pure hyperglyceridemia; R73.02 Impaired glucose tolerance (oral); Z23 Encounter for immunization

== ENCOUNTER → 2024-10-30 08:16 | Outpatient (BNVA) | payer MEDICARE, SELFPAY | PROVIDERS: PCP Internal Medicine; Visit Provider Internal Medicine | DX: Z23 Encounter for immunization (principal); I10 Essential (primary) hypertension; E78.1 Pure hyperglyceridemia; R73.02 Impaired glucose tolerance (oral) | CPT/HCPCS: 90471; 90677; 99212 ==

== ENCOUNTER 2024-12-25 07:04 | Outpatient (REF) | payer MEDICARE, SELFPAY ==
[2024-12-25 07:13] LABS: MANUAL DIFF FLAG NO
[2024-12-25 07:42] LABS: Basophils Absolute Auto 0.1 X10*3/uL (0.0-0.2); Basophils Percent Auto 0.9 % (0-2); Eosinophils Absolute Auto 0.3 X10*3/uL (0.0-0.4); Eosinophils Percent Auto 4.4 % (0-4); Hematocrit 39.8 % (42.0-52.0); Hemoglobin 13.8 g/dl (14.0-18.0); Imm Gran Abs Auto 0.02 X10*3/uL (0.00-0.03); Imm Gran Pct Auto 0.3 % (0.0-0.4); Immature Retic Fraction 7.4 % (2.3-13.4); Lymphocytes Absolute Auto 1.6 X10*3/uL (1.2-4.9); Lymphocytes Percent Auto 23.5 % (20-40); Mean Corpuscular HGB Conc 34.7 g/dl (31.0-36.0); Mean Corpuscular Hemoglobin 29.2 pg (27.0-33.0); Mean Corpuscular Volume 84.1 fL (80.0-98.0); Mean Platelet Volume 9.2 fL (9.4-12.4); Monocytes Absolute Auto 0.8 X10*3/uL (0.1-1.2); Monocytes Percent Auto 10.8 % (2-11); Neutrophils Absolute Auto 4.2 x10*3/uL (2.0-8.3); Neutrophils Percent Auto 60.1 % (45-73); Platelet Count 237 X10*3/uL (160-400); Red Blood Count 4.73 X10*6/uL (4.60-5.80); Retic HGB Equivalent 32.9 pg (30.0-35.0); Reticulocyte Percent 1.2 % (0.5-1.8); Reticulocytes Absolute 0.056 X10*6/uL (0.026-0.095)
[2024-12-25 07:52] LABS: Estimated Average Glucose 120 mg/dL; Hemoglobin A1c % 5.8 % (<6.0); Total Hemoglobin (HGBA1C) 3630.1779 umol/L
[2024-12-25 08:29] LABS: Alanine Aminotransferase 25 U/L (0-40); Albumin Level 4.4 g/dL (3.5-5.0); Alkaline Phosphatase 56 U/L (39-117); Anion Gap 10 (12-20); Aspartate Amino Transferase 24 U/L (5-37); Bilirubin Total 0.7 mg/dL (0.0-1.0); Blood Urea Nitrogen 22 mg/dL (9-16); Carbon Dioxide 27 mmol/L (22-29); Chloride 105 mmol/L (96-108); Cholesterol 99 mg/dL (<200); Estimated Glomerular Filt Rate > 60; Glucose Random 105 mg/dL (60-115); HDL Cholesterol 27 mg/dL (>40); Iron 71 mcg/dL (45-160); LDL Cholesterol Calculated 55 mg/dL (<100); Percent Iron Saturation 25 % (15-50); Potassium 4.3 mmol/L (3.3-5.1); Sodium 138 mmol/L (135-145); Total Iron Binding Capacity 282 mcg/dL (228-428); Total Protein 6.8 g/dL (6.5-8.0); Triglycerides 86 mg/dL (<150); Unsaturated Iron Binding 211 ug/dL
[2024-12-25 08:50] LABS: Ferritin 46 ng/mL (20-250); Free T4 (Free Thyroxine) 1.08 ng/dL (0.71-1.85); Thyroid Stimulating Hormone 1.25 uIU/mL (0.32-4.0)
[2024-12-25 09:00] LABS: Folate 9.5 ng/mL (> or = 4.0); Vitamin B12 379 pg/mL (200-900)
== END 2024-12-25 07:05 | disposition home or self-care (01) ==
LOC: HO.LAB 07:04
PROVIDERS: PCP Internal Medicine; Visit Provider Internal Medicine
DX: I10 Essential (primary) hypertension (principal); E78.00 Pure hypercholesterolemia, unspecified; Z13.1 Encounter for screening for diabetes mellitus
CPT/HCPCS: 36415; 80053; 80061; 82607; 82728; 82746; 83036; 83540; 84439; 84443; 85025; 85045

== ENCOUNTER 2025-05-21 08:17 | Outpatient (AMB) | payer MEDICARE, SELFPAY ==
[2025-05-21 08:26] VITALS: BP 132/60; PULSE 75; TEMP 36.1; O2SAT 94; BMI 27.1
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
--- OUTSIDE RECORDS SUMMARY | 2025-05-21 08:33 | XMS_ITS | Clinical Summary ---
Author Organization [facility] Address [address] [place] [id number] Phone Care Team Providers Care Hardware Engineering Manager Name Role Phone Antwan Fitzpatrick MD Primary Care Provider Allergies Active Allergy Reactions Criticality Noted Date Comments Pollen Extracts Itching Low 03/17/2024 Medications atorvastatin (LIPITOR) 20 MG tablet Take 20 mg by mouth daily. Active metoprolol succinate (TOPROL-XL) 100 MG 24 hr tablet Take 100 mg by mouth daily. Active tamsulosin (FLOMAX) 0.4 mg Cap Take 0.4 mg by mouth nightly at bedtime. at bedtime. Active Social History Tobacco Use Types Packs/Day Years Used Date Smoking Tobacco: Never Smokeless Tobacco: Never Tobacco Cessation:Counseling Given: Not Answered Alcohol Use Standard Drinks/Week Comments Not Currently 0 (1 standard drink = 0.6 oz pur e alcohol) Education Answer Date Recorded Are you interested in more education? Not on robby e 01/03/2023 Are you concerned about learning? Not on file 01/03/2023 No 01/03/2023 No 01/03/2023 Digital Access Answer Date Recorded No 01/03/2023 No 01/03/2023 Reliable internet access at home? Not on file 01/03/2023 Device with a working camera? Not on file Sex and Gender Information Value Date Recorded Sex Assigned at Male 01/03/2023 7:47 AM EDT Legal Sex Male 7:40 AM EDT Gender Identity Male 01/03/2023 7:47 AM EDT Sexual Orientation Straight 01/03/2023 7: 47 AM EDT Last Filed Vital Signs Vital Sign Reading Time Taken Comments Blood Pressure 171/67 03/17/2024 9:23 AM EDT Pulse 69 03/17/2024 9:19 AM EDT Temperature 36.2 C (97.2 F) 03/17/2024 9:19 AM EDT Respiratory Rate - - Oxygen Saturation 100% 03/17/2024 9:19 AM EDT Inhaled Oxygen Concentration - - Weight 80.3 kg (177 lb) 03/17/2024 9:19 AM EDT Height 173.4 cm (5' 8.27 ) 03/17/2024 9:19 AM ED T Body Mass Index 26.7 03/17/2024 9:19 AM EDT Plan of Treatment Health Maintenance Due Date Last Done Comments Adult Td,Tdap Booster 1942 DEPRESSION SCREENING 1954 PNEUMOCOCCAL VACCINES (50+ y ears) (1 of 1 - PCV) 1992 ZOSTER VACCINES (1 of 2) 1992 RSV VACCINE (1 - 1-dose 75+ series) 2017 INFLUENZA VACCINE (#1) 2025 COVID-19 VACCINE ( - 2024-2 6 season) 2025 HEPATITIS A VACCINES Aged Out No long er eligible based on patient's age to complete this topic HIB VACCINES Aged Out No longer eligi ble based on patient's age to complete this topic MENINGOCOCCAL VACCINES (ACWY) Aged Out No longer eligible based on patient's age to complete this topic MENINGOCOCCAL VACCINES (B) Aged Out N o longer eligible based on patient's age to complete this topic Medical Devices Not on file Insurance [employer] MEDEX SUPPLEMENT MEDICARE PART A & B [facility] MEDEX SUPPLEMENT MEDICARE PART A & B [employer] MEDEX SUPPLEMENT MEDICARE PART A & B [employer] MEDEX SUPPLEMENT MEDICARE PART A & B [employer] MEDEX SUPPLEMENT MEDICARE PART A & B [employer] MEDEX SUPPLEMENT MEDICARE PART A & B Care Teams Hardware Engineering Manager Relationship Specialty Start Date End Date Antwan Fitzpatrick MD [address] [place] [address] Drive [address] [place] [id number] PCP - General Internal Medicine 05/07/23 Additional Source Comments The information contained in this document represents components of the legal health record. It is not the complete legal health record.[facility]
== END 2025-05-21 09:30 | disposition home or self-care (01) ==
LOC: HO.HMCH 08:17
PROVIDERS: PCP Internal Medicine; Visit Provider Internal Medicine
DX: Z00.00 Encounter for general adult medical examination without abnormal findings (principal); R73.02 Impaired glucose tolerance (oral); I10 Essential (primary) hypertension; E78.00 Pure hypercholesterolemia, unspecified; D64.9 Anemia, unspecified; N40.0 Benign prostatic hyperplasia without lower urinary tract symptoms; K40.90 Unilateral inguinal hernia, without obstruction or gangrene, not specified as recurrent; K42.9 Umbilical hernia without obstruction or gangrene

== ENCOUNTER → 2025-05-21 08:17 | Outpatient (BNVA) | payer MEDICARE, SELFPAY | PROVIDERS: PCP Internal Medicine; Visit Provider Internal Medicine | DX: Z13.31 Encounter for screening for depression (principal) | CPT/HCPCS: 96127 ==